=== PATIENT | female | born 1935 | race Caucasian/White ===

== ENCOUNTER → 2016-09-30 13:41 | Outpatient (CLI) | payer MEDICARE, OTHER ==
[2013-01-05 14:01] VITALS: BMI 29.3
== END | disposition home or self-care (01) ==
LOC: D.US 13:41
DX: R80.9 Proteinuria, unspecified (principal); N18.3 Chronic kidney disease, stage 3 (moderate); E21.1 Secondary hyperparathyroidism, not elsewhere classified; I10 Essential (primary) hypertension

== ENCOUNTER → 2016-12-17 13:45 | Outpatient (CLI) | payer MEDICARE, OTHER ==
[2013-01-05 14:01] VITALS: BMI 29.3
== END | disposition home or self-care (01) ==
LOC: D.MRI 13:45
DX: M75.81 Other shoulder lesions, right shoulder (principal)

== ENCOUNTER 2017-01-25 05:08 | Day surgery (SDC) | payer MEDICARE, OTHER ==
[2017-01-22 09:15] LABS: BASOPHILS 0.9 % (0-2); EOSINOPHILS 2.6 % (0-7); HEMATOCRIT 41.7 % (36.0-48.0); HEMOGLOBIN 13.4 g/dL (12-16); IMMATURE GRANULOCYTES 0.5 % (0-5); LYMPHOCYTES 23.3 % (15-50); MCHC 32.1 g/dL (31.0-37.0); MCV 93.5 fL (80.0-100.0); MEAN PLATELET VOLUME 9.2 fL (7.4-10.4); MONOCYTES 15.9 % (2-11); NEUTROPHILS 56.8 % (40-80); RBC 4.46 10x6/uL (4.00-5.40); RDW 13.4 % (11.5-14.5); WBC 8.8 10x3/uL (4.8-10.8)
[2017-01-22 09:16] LABS: PLATELET COUNT 257 10x3/uL (130-400)
[2017-01-22 09:25] LABS: ANION GAP 10.4 mmol/L (8-16); CALCIUM 9.1 mg/dL (8.5-10.1); CARBON DIOXIDE 31.5 mmol/L (21.0-32.0); CREATININE - SERUM 1.3 mg/dL (0.6-1.3); POTASSIUM - SERUM 3.9 mmol/L (3.5-5.1)
[~2017-01-25] VITALS: Ht 152.4 cm; Wt 68.0 kg
--- NOTE | ~2017-01-25 | OP ---
PATIENT NAME: RAPHAEL CABRAL MEDICAL RECORD: [id number] :37 LOCATION:[facility] ADMISSION DATE: SURGEON: KEVIN HAMMONDS, MADI RAHMAN DATE OF OPERATION: 01/25/2017 PREOPERATIVE DIAGNOSES: 1. Rotator cuff tear of the right shoulder. 2. Impingement syndrome of the right shoulder. 3. Acromioclavicular arthritis of the right shoulder. POSTOPERATIVE DIAGNOSES: 1. Rotator cuff tear of the right shoulder. 2. Impingement syndrome of the right shoulder. 3. Acromioclavicular arthritis of the right shoulder. PROCEDURES: 1. Arthroscopic rotator cuff repair of the right shoulder. 2. Arthroscopic distal clavicle excision of the right shoulder -- 1 cm through separate incisions. 3. Arthroscopic subacromial decompression, acromioplasty and bursectomy. SURGEON: Madi Garza MD ANESTHESIA: General. INTRAOPERATIVE COMPLICATIONS: None. SUMMARY OF PATHOLOGIC FINDINGS: The patient had a full thickness rotator cuff tear at the supraspinatus tendon with a type 3 acromion as well as severe acromioclavicular arthritis. OPERATIVE SUMMARY IN DETAIL: After obtaining the appropriate preoperative orthopedic surgery consents as well as anesthetic consultation, evaluation and clearance, the patient was brought to the operating room and placed in the operating table in supine position. After adequate general laryngeal mask airway was administered, the patient was placed n the left lateral decubitus position. All pressure points were well padded to include down leg peroneal pad as well as axillary roll. The patient was held firmly to the operating table using the vacuum pack suction system. Right upper extremity and shoulder were then prepped and draped in a routine sterile fashion. The arm was held in the Arthrex traction boom at 30 degrees of forward flexion, 30 degrees of abduction with 10 pounds of traction laterally. Arthroscopy was established in the glenohumeral joint from a posterior portal. Anterior portal was established in the anterior safe interval. Diagnostic arthroscopy revealed the above findings. A transarthroscopic rotator cuff tear portal was created for debridement of the rotator cuff as well as decortication of the supraspinatus tendinous footprint. The attention was then turned to the subacromial space. Following the subacromial space, an [place] tissue ablation system was utilized to denude the undersurface of the acromion of all soft tissue elements and released coracoacromial ligament. A bur was then used to perform acromioplasty at the level of acromioclavicular joint and through a separate arthroscopic anterior portal, distal clavicle was excised for 1 cm. Having completed this, attention was returned to the rotator cuff. An inverted #2 FiberTape was then placed in mattress style fashion. The rotator cuff was reapproximated with the FiberTape and then anchored laterally with a 5.5 SwiveLock from Arthrex. Having completed OPERATIVE REPORT [id number] RAPHAEL CABRAL this, arthroscopy portals were closed in routine interrupted fashion using 4-0 Prolene. Sterile dressings were applied. The patient was awakened and taken to the recovery room in stable condition. All final needle and instruments counts were correct. TRANSINT:[id number] Voice Confirmation ID: [id number] DOCUMENT ID: [id number] KEVIN HAMMONDS, MADI RAHMAN CC: [id number] DICTATION DATE: 01/25/171114 HOSPITAL FELLOW: 01/25/171955 [id number] [place] [address]
[~2017-01-25 05:08] MED LIST: CYMBALTA60 MG PO; NIFEDIPINE ER30 MG PO; PREVACID15 MG PO; PROPRANOLOL HCL20 MG PO; TROSPIUM CHLORI20 MG PO; ULTRAM50 MG PO; VIBERZI PO; VITAMIN D250000 UNIT PO; ZOCOR40 MG PO
[2017-01-25 08:38] VITALS: BP 166/86; Ht 152.4 cm; Wt 68.0 kg
[2017-01-25] MEDS ORDERED: HYDROCODONE-APA1 TAB PO (11:19)
== END 2017-01-25 14:30 | disposition home or self-care (01) ==
LOC: D.OPS 05:08 → D.PAN 08:30 → D.OPS 09:30 → D.PAN 10:15 → D.OPS 14:30
PROVIDERS: Anesthesiology
DX: M75.101 Unspecified rotator cuff tear or rupture of right shoulder, not specified as traumatic (principal); M75.41 Impingement syndrome of right shoulder; I12.9 Hypertensive chronic kidney disease with stage 1 through stage 4 chronic kidney disease, or unspecified chronic kidney disease; N18.9 Chronic kidney disease, unspecified; Z01.812 Encounter for preprocedural laboratory examination

== ENCOUNTER → 2017-09-15 12:46 | Outpatient (CLI) | payer MEDICARE, OTHER ==
[2017-01-25 08:38] VITALS: BMI 29.3
[~2017-09-15 12:46] MED LIST changes: +HYDROCODONE-APA1 TAB PO
== END | disposition home or self-care (01) ==
LOC: D.RAD 12:46
DX: M54.2 Cervicalgia (principal)

== ENCOUNTER → 2017-09-23 13:53 | Outpatient (CLI) | payer MEDICARE, OTHER ==
[2017-01-25 08:38] VITALS: BMI 29.3
== END | disposition home or self-care (01) ==
LOC: D.MRI 13:53
DX: M54.12 Radiculopathy, cervical region (principal)

== ENCOUNTER → 2018-11-09 10:31 | Outpatient (CLI) | payer MEDICARE, OTHER ==
[2017-01-25 08:38] VITALS: BMI 29.3
== END | disposition home or self-care (01) ==
LOC: D.MRI 10:31
PROVIDERS: ATTEND Pain Medicine Pain Medicine
DX: M54.2 Cervicalgia (principal); M54.12 Radiculopathy, cervical region

== ENCOUNTER → 2019-04-06 13:03 | Outpatient (CLI) | payer MEDICARE, OTHER ==
[2017-01-25 08:38] VITALS: BMI 29.3
== END | disposition home or self-care (01) ==
LOC: D.CT 13:00
PROVIDERS: ATTEND Family Medicine
DX: G45.9 Transient cerebral ischemic attack, unspecified (principal)

== ENCOUNTER 2019-04-21 09:13 | Inpatient (IN) | payer MEDICARE, OTHER ==
[~2019-04-21] VITALS: Ht 152.4 cm; Wt 61.2 kg
[2019-04-21] MEDS ORDERED: ZANAFLEX4 MG PO (09:25)
[2019-04-21] MEDS ORDERED: BAYER CHEWABLE81 MG PO (09:26)
[2019-04-21 10:20] LABS: BASOPHILS 0.5 % (0-2); EOSINOPHILS 0.3 % (0-7); HEMATOCRIT 34.9 % (36.0-48.0); HEMOGLOBIN 11.4 g/dL (12-16); IMMATURE GRANULOCYTES 0.4 % (0-5); LYMPHOCYTES 11.3 % (15-50); MCH 29.4 pg (26.0-34.0); MCHC 32.7 g/dL (31.0-37.0); MCV 89.9 fL (80.0-100.0); MEAN PLATELET VOLUME 8.7 fL (7.4-10.4); MONOCYTES 15.7 % (2-11); NEUTROPHILS 71.8 % (40-80); PLATELET COUNT 262 10x3/uL (130-400); RBC 3.88 10x6/uL (4.00-5.40); RDW 12.8 % (11.5-14.5); WBC 12.6 10x3/uL (4.8-10.8)
[2019-04-21 10:29] LABS: APTT 31.3 SECONDS (22.8-39.4); INR 1.12 (0.85-1.17); PROTIME 13.9 SECONDS (11.6-15.0)
[2019-04-21 10:35] LABS: ALBUMIN 2.5 g/dL (3.4-5.0); ALKALINE PHOSPHATASE 60 U/L (46-116); ALT (SGPT) 9 U/L (10-68); BILIRUBIN - TOTAL 0.32 mg/dL (0.2-1.3); CALC OSMOLALITY 282 mosm/kg (275-300); CALCIUM 9.5 mg/dL (8.5-10.1); CARBON DIOXIDE 33.2 mmol/L (21.0-32.0); CHLORIDE - SERUM 102 mmol/L (98-107); CREATININE - SERUM 1.3 mg/dL (0.6-1.3); D-DIMER-QUANTITATIVE 1.23 ug/mLFEU (0.20-0.54); GLUCOSE 132 mg/dL (74-106); POTASSIUM - SERUM 4.2 mmol/L (3.5-5.1); PROTEIN - SERUM 6.7 g/dL (6.4-8.2); SODIUM 138 mmol/L (136-145); UREA NITROGEN 27 mg/dL (7-18); eGFR NON AFRICAN AMERICAN 41 mL/min (90-120)
[2019-04-21 10:43] LABS: CKMB 0.4 U/L (0.0-3.6); CREATINE KINASE 15 UL (21-215); MAGNESIUM - SERUM 1.6 mg/dL (1.8-2.4)
[2019-04-21 10:44] LABS: TROPONIN-I < 0.017 ng/mL (0.000-0.060)
--- NOTE | 2019-04-21 11:00 | NUR ---
ASSUMED CARE OF PATIENT AT THIS TIME, PT RESTING QUIETLY IN BED AT THIS TIME. EYES CLOSED, RESPIRATIONS EVEN AND UNLABORED.
--- NOTE | 2019-04-21 11:27 | NUR ---
According to the suicide assessment the patient does not need 1:1 observation. She is not suicidal, she is not depressed. She does admit to a lot of pain.
[2019-04-21 13:44] LABS: PROTEIN - BODY FLUID 4.1 G/DL
[2019-04-21 13:49] LABS: ERYTHROCYTE SEDIMENTATION RATE 40 mm/hr (0-30)
[2019-04-21 15:14] LABS: MACROPHAGES BF 4 %; NEUT - BF 94 %
--- NOTE | 2019-04-21 15:19 | NUR ---
PLACED PATIENT ON BEDPAN AT THIS TIME.
--- NOTE | 2019-04-21 16:56 | NUR ---
RECEIVED PT FROM ER VIA STRETCHER ACCOMPANIED BY ER STAFF. IV TO RIGHT AC, NS INFUSING @ 100ML/HR. SITE PATENT WITHOUT REDNESS OR SWELLING. C/O PAIN AND DISCOMFORT TO RIGHT KNEE. NO S/S OF ACUTE DISTRESS NOTED. VITALS STABLE. SPEECH APPROPRIATE. PT DENIES ANY NEEDS. CALL LIGHT IN REACH. WILL CONTINUE TO MONITOR.
[2019-04-21 17:03] VITALS: BP 122/64; BMI 26.4
--- NOTE | 2019-04-21 17:45 | MORECARE ---
CASE MANAGEMENT DISCHARGE SUMMARY PATIENT: RAPHAEL CABRAL UNIT: [id number] ADM DATE: 04/21/19 AGE: 83 : 36 SEX: F ROOM/BED: D.2230 AUTHOR: LIZY SHERMAN PHYSICIAN: REFERRING PHYSICIAN: DOE HILL MD DATE OF SERVICE: 04/21/19 Discharge Plan Patient Name: RAPHAEL CABRAL Facility: [facility]:[place] : 1935 Planned Disposition: Home Anticipated Discharge Date: 04/24/19 Discharge Date: Expected LOS: 3 Initial Reviewer: [email or web address] Initial Review Date: 04/21/2019 Generated: 04/21/19 6:45 pm Patient Name: RAPHAEL CABRAL Page 12165 at 1740 All edits/amendments must be made on the electronic document DICTATION DATE: 04/21/191744 HOSTESS HOST: HARESH 04/21/191744 RPT#: [id number] DC DATE: STATUS: ADM IN [facility] [address] [place] [address] END OF REPORT
--- NOTE | 2019-04-21 17:53 | MORECARE ---
CASE MANAGEMENT DISCHARGE SUMMARY PATIENT: RAPHAEL CABRAL UNIT: [id number] ADM DATE: 04/21/19 AGE: 83 : 36 SEX: F ROOM/BED: D.2230 AUTHOR: WHIT,DOC PHYSICIAN: REFERRING PHYSICIAN: DOE HILL MD DATE OF SERVICE: 04/21/19 Discharge Plan Patient Name: RAPHAEL CABRAL Facility: [facility]:[place] : 1935 Planned Disposition: Home Anticipated Discharge Date: 04/24/19 Discharge Date: Expected LOS: 3 Initial Reviewer: [email or web address] Initial Review Date: 04/21/2019 Generated: 04/21/19 6:53 pm DCP- Discharge Planning Updated by [email or web address]: Monet Barba on 04/21/19 4:[address] Patient Name: RAPHAEL CABRAL Admission Status: ER Accout number: [id number] Admission Date: 04-21-2019 : 1935 Admission Diagnosis: Attending: DOE HILL Current LOS: 1 Anticipated DC Date: 04-24-2019 Planned Disposition: Home Primary Insurance: MEDICARE A & B Discharge Planning Comments: DC PLAN: Will discuss HH/Rehab options with dtr / son before making final decision. ANTICIPATED DC NEEDS: [place]. CM met with patient to complete initial dc planning assessment. CM educated patient on the CM role and verbal consent given by patient to complete assessment. CM verified patient's address, phone number, and emergency contact phone numbers. Patient lives at home alone, her son lives in apartment below her but he works out of town a lot. At discharge patient hopes to return home and feels this is a safe discharge if she is able to get around on her knee. CM discussed availability of home health, rehab services, and medical equipment. 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 RAOUL signed by patient for [employer]. Patient stated once she see's how she is getting around on her knee she will discuss home health and rehab options with her kids to make final dc disposition. Patient reports her son or daughter will transport her home at time of discharge if she is able to dc home. CM will continue to follow and will assist as needed with dc plans/needs. Manager Internship: Monet Barba RN, [facility] DCPIA - Discharge Planning Initial Assessment Updated by [email or web address]: Monet Barba on 04/21/19 5:46 pm * Is the patient Alert and Oriented? Yes * How many steps to enter\exit or inside your home? RAMP * PCP DR. OBRIEN * Pharmacy [facility] [place] * Preadmission Environment Home Alone * ADLs Independent * Equipment Cane Rolling Walker * List name and contact numbers for known caregivers / representatives who currently or will assist patient after discharge: Umesh Cabral - daughter - [phone] * Verbal permission to speak to the caregivers and representatives has been obtained from the patient. Yes * Community resources currently utilized None * Additional services required to return to the preadmission environment? Yes * Can the patient safely return to the preadmission environment? Yes * Has this patient been hospitalized within the prior 30 days at any hospital? No Last DP export: 04/21/19 4:46 p Patient Name: RAPHAEL CABRAL Page 55891 at 1753 All edits/amendments must be made on the electronic document DICTATION DATE: 04/21/191751 ARCHITECTURAL PROJECT MANAGER: HARESH 04/21/191751 RPT#: [id number] DC DATE: STATUS: ADM IN [facility] [address] [place] [address] END OF REPORT
--- NOTE | 2019-04-21 18:01 | MORECARE ---
CASE MANAGEMENT DISCHARGE SUMMARY PATIENT: RAPHAEL CABRAL UNIT: [id number] ADM DATE: 04/21/19 AGE: 83 : 36 SEX: F ROOM/BED: D.2230 AUTHOR: WHIT,DOC PHYSICIAN: REFERRING PHYSICIAN: DOE HILL MD DATE OF SERVICE: 04/21/19 Discharge Plan Patient Name: RAPHAEL CABRAL Facility: [facility]:[place] : 1935 Planned Disposition: Home Anticipated Discharge Date: 04/24/19 Discharge Date: Expected LOS: 3 Initial Reviewer: [email or web address] Initial Review Date: 04/21/2019 Generated: 04/21/19 7:01 pm DCP- Discharge Planning Updated by [email or web address]: Monet Barba on 04/21/19 4:[address] Patient Name: RAPHAEL CABRAL Admission Status: ER Accout number: [id number] Admission Date: 04-21-2019 : 1935 Admission Diagnosis: Attending: DOE HILL Current LOS: 1 Anticipated DC Date: 04-24-2019 Planned Disposition: Home Primary Insurance: MEDICARE A & B Discharge Planning Comments: DC PLAN: Will discuss HH/Rehab options with dtr / son before making final decision. ANTICIPATED DC NEEDS: [place]. CM met with patient to complete initial dc planning assessment. CM educated patient on the CM role and verbal consent given by patient to complete assessment. CM verified patient's address, phone number, and emergency contact phone numbers. Patient lives at home alone, her son lives in apartment below her but he works out of town a lot. At discharge patient hopes to return home and feels this is a safe discharge if she is able to get around on her knee. CM discussed availability of home health, rehab services, and medical equipment. [place] RAOUL signed by patient for [employer]. Patient stated once she see's how she is getting around on her knee she will discuss home health and rehab options with her kids to make final dc disposition. Patient reports her son or daughter will transport her home at time of discharge if she is able to dc home. CM will continue to follow and will assist as needed with dc plans/needs. Advertising Sales Manager: Monet Barba RN, [facility] DCPIA - Discharge Planning Initial Assessment Updated by [email or web address]: Monet Barba on 04/21/19 5:46 pm * Is the patient Alert and Oriented? Yes * How many steps to enter\exit or inside your home? RAMP * PCP DR. OBRIEN * Pharmacy [facility] [place] * Preadmission Environment Home Alone * ADLs Independent * Equipment Cane Rolling Walker * List name and contact numbers for known caregivers / representatives who currently or will assist patient after discharge: Umesh Cabral - daughter - [phone] * Verbal permission to speak to the caregivers and representatives has been obtained from the patient. Yes * Community resources currently utilized None * Additional services required to return to the preadmission environment? Yes * Can the patient safely return to the preadmission environment? Yes * Has this patient been hospitalized within the prior 30 days at any hospital? No Last DP export: 04/21/19 4:53 p Patient Name: RAPHAEL CABRAL Page 95369 at 1801 All edits/amendments must be made on the electronic document DICTATION DATE: 04/21/191800 VENTILATION MECHANIC: HARESH 04/21/191800 RPT#: [id number] DC DATE: STATUS: ADM IN [facility] [address] [place] [address] END OF REPORT
[2019-04-21 20:00] VITALS: BP 119/56
--- NOTE | 2019-04-21 20:00 | NUR ---
RESTING IN BED RESP UNLABORED, EDEMA NOTED TO RIGHT KNEE, DENIES PAIN, SEE SHIFT ASSESSMENT, CALL LIGHT IN REACH
[2019-04-21 21:24] LABS: APPEARANCE CLOUDY (CLEAR); BILIRUBIN NEGATIVE (NEGATIVE); COLOR YELLOW (YELLOW); GLUCOSE NEGATIVE (NEGATIVE); KETONE NEGATIVE (NEGATIVE); NITRITE NEGATIVE (NEGATIVE); PROTEIN TRACE mg/dL (NEGATIVE); UROBILINOGEN NORMAL (NORMAL)
[2019-04-21 21:25] LABS: BACTERIA MANY /hpf (NONE SEEN); RED CELLS - URINE 0-5 /hpf (0-5); WHITE CELLS - URINE 25-50 /hpf (0-5)
[2019-04-22] VITALS: BP 149/58
[2019-04-22 04:00] VITALS: BP 149/75
[2019-04-22 06:48] LABS: EOSINOPHILS 0.7 % (0-7); HEMATOCRIT 35.8 % (36.0-48.0); HEMOGLOBIN 11.7 g/dL (12-16); IMMATURE GRANULOCYTES 0.5 % (0-5); LYMPHOCYTES 16.7 % (15-50); MCH 29.5 pg (26.0-34.0); MCHC 32.7 g/dL (31.0-37.0); MCV 90.4 fL (80.0-100.0); MEAN PLATELET VOLUME 9.7 fL (7.4-10.4); MONOCYTES 18.9 % (2-11); NEUTROPHILS 62.2 % (40-80); PLATELET COUNT 295 10x3/uL (130-400); RBC 3.96 10x6/uL (4.00-5.40); RDW 12.8 % (11.5-14.5); WBC 10.2 10x3/uL (4.8-10.8)
[2019-04-22 07:01] LABS: ANION GAP 14.5 mmol/L (8-16); CALCIUM 9.1 mg/dL (8.5-10.1); CARBON DIOXIDE 26.2 mmol/L (21.0-32.0); CREATININE - SERUM 1.1 mg/dL (0.6-1.3); POTASSIUM - SERUM 3.7 mmol/L (3.5-5.1)
--- NOTE | 2019-04-22 07:15 | NUR ---
ALERT AND ORIENTED, SPEECH SLOW. NO C/O PAIN. NO S/S OF ACUTE DISTRESS NOTED. VERY [place]. IV TO RIGHT AC, NS INFUSING @ 100ML/HR. SITE PATENT WITHOUT REDNESS OR SWELLING. PT DENIES ANY NEEDS. CALL LIGHT IN REACH. WILL CONTINUE TO MONITOR.
--- NOTE | 2019-04-22 07:40 | NUR ---
PT TAKEN TO SURGERY VIA BED ACCOMPANIED BY SURGICAL STAFF.
[2019-04-22 07:49] LABS: ERYTHROCYTE SEDIMENTATION RATE 115 mm/hr (0-30)
--- NOTE | 2019-04-22 09:24 | NUR ---
CONSULTED ANESTHESIA ABOUT BP. HE VOCALIZED HER PRE OPERATIVE BP WAS 180/82 SO SHE IS WITHIN HER PREVIOUS BASELINE TO GO BACK TO [facility] FLOOR
[2019-04-22 09:35] VITALS: BP 167/76
[2019-04-22 09:36] VITALS: BP 147/86
--- NOTE | 2019-04-22 09:36 | NUR ---
RECEIVED PT FROM RECOVERY. VITALS STABLE. PT SLEEPING, AROUSES TO VOICE. NO C/O PAIN. ON 2L O2, NC. O2 SAT DROPS WHEN OFF O2, KEEPING ON O2 FOR NOW.
--- NOTE | 2019-04-22 09:36 | NUR ---
DRESSING TO RIGHT KNEE C/D/I.
[2019-04-22 12:04] VITALS: Ht 152.4 cm; Wt 61.2 kg
[2019-04-22 13:40] LABS: % SATURATION 10 % (15-55); IRON 21 ug/dl (35-150); TOTAL IRON BIND CAPACITY 203 ug/dl (260-445); UNSAT IRON BIND CAPACITY 182 ug/dl (150-375)
--- NOTE | 2019-04-22 15:46 | NUR ---
I have reviewed this patient and I concur with the Shift Assessment completed by the Licensed Practical Nurse today this shift.
[2019-04-22 17:16] VITALS: BP 168/80
--- NOTE | 2019-04-22 18:24 | NUR ---
ALERT AND ORIENTED, RESTING IN BED. NO C/O PAIN. NO S/S OF ACUTE DISTRESS NOTED. FALL PRECAUTIONS IN PLACE. PT DENIES ANY NEEDS. CALL LIGHT IN REACH. WILL CONTINUE TO MONITOR.
--- NOTE | 2019-04-22 18:38 | NUR ---
I have reviewed this patient and I concur with the Shift Assessment completed by the Licensed Practical Nurse today this shift.
[2019-04-22 20:00] VITALS: BP 181/81
--- NOTE | 2019-04-22 20:00 | NUR ---
ALERT RESTING IN BED, EZEQUIEL WRAP DRESSING INTACT TO RIGHT KNEE, C/O PAIN WITH MOVEMENT, SEE SHIFT ASSESSMENT, CALL LIGHT IN REACH
[2019-04-23] VITALS: BP 172/77
[2019-04-23 04:00] VITALS: BP 185/84
[2019-04-23 04:53] LABS: BASOPHILS 0.3 % (0-2); EOSINOPHILS 0.3 % (0-7); HEMATOCRIT 30.2 % (36.0-48.0); HEMOGLOBIN 9.9 g/dL (12-16); IMMATURE GRANULOCYTES 0.6 % (0-5); LYMPHOCYTES 10.6 % (15-50); MCH 29.6 pg (26.0-34.0); MCHC 32.8 g/dL (31.0-37.0); MCV 90.1 fL (80.0-100.0); MEAN PLATELET VOLUME 8.8 fL (7.4-10.4); MONOCYTES 15.8 % (2-11); NEUTROPHILS 72.4 % (40-80); RBC 3.35 10x6/uL (4.00-5.40); RDW 12.8 % (11.5-14.5)
[2019-04-23 04:59] LABS: PLATELET COUNT 230 10x3/uL (130-400); WBC 13.6 10x3/uL (4.8-10.8)
[2019-04-23 05:18] LABS: ANION GAP 13.7 mmol/L (8-16); CARBON DIOXIDE 23.7 mmol/L (21.0-32.0); CREATININE - SERUM 0.9 mg/dL (0.6-1.3); POTASSIUM - SERUM 3.4 mmol/L (3.5-5.1); VANCOMYCIN - TROUGH 15.7 ug/mL (10.0-20.0)
--- NOTE | 2019-04-23 07:35 | NUR ---
ALERT AND ORIENTED, RESTING IN BED. NO C/O PAIN. NO S/S OF ACUTE DISTRESS NOTED. VERY [place]. EZEQUIEL WRAP TO RIGHT KNEE, C/D/I. ON 2L O2, NC. IV TO RIGHT AC, NS INFUSING @ 100ML/HR. SITE PATENT WITHOUT REDNESS OR SWELLING. PT DENIES ANY NEEDS. CALL LIGHT IN REACH. WILL CONTINUE TO MONITOR.
[2019-04-23 08:07] VITALS: BP 167/80
--- NOTE | 2019-04-23 09:24 | NUR ---
REHAB PRESCREENING Rehab referral received and chart reviewed. This patient has PT and OT evaluations ordered but not documented as of yet. Rehab will continue to follow this patient for admission criteria. Thank you for this referral! Jyoti Gillette, CARBURETOR REBUILDER Rehab PD
[2019-04-23 14:01] VITALS: BP 178/56
[2019-04-23 14:43] LABS: ERYTHROCYTE SEDIMENTATION RATE 60 mm/hr (0-30)
--- NOTE | 2019-04-23 16:44 | NUR ---
I have reviewed this patient and I concur with the Shift Assessment completed by the Licensed Practical Nurse today this shift.
[2019-04-23 17:28] VITALS: BP 196/89
--- NOTE | 2019-04-23 19:35 | NUR ---
PT LYING IN BED RESTING WITHOUT DISTRESS, ALERT AND ORIENTED. DENIES PAIN. PILOT POINT. IV RIGHT FA INFUSING NS @ 100. ASSISTED ON AND OFF BEDPAN. REQUESTED AND GAVE WATER. DRESSING TO RIGHT KNEE CDI. DENIES OTHER NEEDS AT THIS TIME. CL IN REACH, WILL CTM
[2019-04-23 20:00] VITALS: BP 157/73
[2019-04-24] VITALS: BP 189/84
--- NOTE | 2019-04-24 00:30 | NUR ---
PT STATES PAIN IN RIGHT KNEE 03/15. GAVE NORCO ORDERED. PT ALSO WITH TEMP 101.7, NORCO GIVEN. ROOM IS WARM AND PT WITH MULTIPLE BLANKETS ON. PULLED OFF BLANKETS AND COOLED ROOM DOWN. WILL CTM
[2019-04-24 04:00] VITALS: BP 144/80
[2019-04-24 06:37] LABS: BASOPHILS 0.5 % (0-2); EOSINOPHILS 2.2 % (0-7); HEMOGLOBIN 9.8 g/dL (12-16); IMMATURE GRANULOCYTES 1.4 % (0-5); LYMPHOCYTES 12.8 % (15-50); MCH 28.8 pg (26.0-34.0); MCHC 31.6 g/dL (31.0-37.0); MCV 91.2 fL (80.0-100.0); MEAN PLATELET VOLUME 9.4 fL (7.4-10.4); MONOCYTES 14.2 % (2-11); NEUTROPHILS 68.9 % (40-80); RDW 13.1 % (11.5-14.5); WBC 11.5 10x3/uL (4.8-10.8)
[2019-04-24 06:40] LABS: PLATELET COUNT 321 10x3/uL (130-400)
[2019-04-24 07:00] LABS: ANION GAP 10.9 mmol/L (8-16); CALCIUM 8.4 mg/dL (8.5-10.1); CARBON DIOXIDE 28.5 mmol/L (21.0-32.0); CREATININE - SERUM 0.9 mg/dL (0.6-1.3); POTASSIUM - SERUM 3.4 mmol/L (3.5-5.1)
--- NOTE | 2019-04-24 07:21 | NUR ---
PT IS RESTING IN BED WITH EYES CLOSED. RESPIRATIONS ARE EVEN AND UNLABORED. PT IS EASILY AROUSED WITH VERBAL STIMULATION. UPON AROUSAL PT IS AAO X 4. PT WITH NOTICABLE BLUE DISCOLORATION TO THE LIPS. PT OXYGENATING WELL. SEE VITALS FLOWSHEET. O2 VIA NC @ 2L. PT QUESTIONED ABOOUT LIP DISCOLORATION AND PT REPORTS THAT SHE HAD MAKEUP TATTOOED EARLIER IN LIFE AND "IT IS NOT THE COLOR THAT I WANTED". PT STATES THAT SHE ALSO HAS TATTOO MAKEUP EYELINER AND FOR HER EYEBROWS. PT REPORTS SLIGHT PAIN TO NECK AND BACK AREA. WILL ADDRESS. SEE EMAR. PT DENIES PRESENCE OF N/V. BED IS IN THE LOWEST POSITION. CALL LIGHT AND BEDSIDE TABLE ARE WITHIN REACH. SIDE RAILS X 2. WILL CONT TO MONITOR. PT DENIES FURTHER NEEDS
[2019-04-24 08:34] VITALS: BP 185/81
[2019-04-24 13:48] VITALS: BP 148/73
--- NOTE | 2019-04-24 14:30 | EC ---
PATIENT:RAPHAEL CABRAL DATE OF SERVICE: 04/21/19 SEX: F MEDICAL RECORD: [id number] DATE OF : [birth year] LOCATION:[facility] AGE OF PATIENT: 83 ADMISSION DATE: 04/21/19 REFERRING PHYSICIAN: INTERPRETING PHYSICIAN: ROCKY ALMANZAR MD ECHOCARDIOGRAM REPORT ECHO CHARGES 4 ECHO COMPLETE Date: 04/22/19 CLINICAL DIAGNOSIS: SEPSIS ECHOCARDIOGRAPHIC MEASUREMENTS (adult normal given) AC root (d.<3.7cm) 2.9 cm LV Septum d (<1.2 cm> 0.7 cm Valve Excursion 1.6 cm LV Septum (systole) 1.2 cm Left Atria (s.<4.0cm> 3.1 cm LVPW d(<1.2cm) 1.0 cm RV (d.<2.3cm) 3.2 cm LVPW (sytole) 1.4 cm LV diastole(<5.6CM) 4.7 cm MV E-F(>70mm/sec) cm LV systole 2.7 cm LVOT Diameter 1.7 cm MV exc.(>10mm) cm Est.ejection fraction (50-75%) % DOPPLER: LVIT cm/sec A 101 cm/sec E 57 cm/sec LA cm/sec RVSP 44.3 mmHg LVOT 121 cm/sec AOP1/2T m/s Asc. Ao 163 cm/sec RVOT 77 cm/sec RA cm/sec PA 88 cm/sec AV Gradient Peak 10.7 mmHg AV Mean 7.2 mmHg AV Area 1.6 cm MV Gradient Peak 6.6 mmHg MV Mean 3.1 mmHg MV Area cm COMMENTS: Gis Scientist: Burke JULIAN Writer Technical Publications: 3 Dr. Roth TAPE# PACS Pericardial Effusion N DATE OF SERVICE: Adequate 2-D, color-flow and spectral Doppler, and M-mode. No LVH. LV internal dimensions are normal. Wall motion is normal. EF is greater than or equal to 55%. Aortic valve sclerosis without stenosis by Doppler interrogation. Left atrium is normal. Mitral valve shows no prolapse. Trace MR. Right-sided chambers are grossly normal. Trace TR. TRANSINT:[id number] Voice Confirmation ID: [id number] DOCUMENT ID: [id number] ECHOCARDIOGRAM REPORT [id number] RAPHAEL CABRAL ROCKY ALMANZAR MD at 1430 CC: [id number] DICTATION DATE: 04/23/19 1049 SUPPLY CHAIN DIRECTOR: 04/23/19 1427 ADM IN [place] [id number] [place] [id number]
[2019-04-24 17:18] VITALS: BP 136/67
--- NOTE | 2019-04-24 19:40 | NUR ---
LYING IN BED TALKING TO VISITOR. ALERT AND ORIENTED BUT CONFUSED. [place]. RESP NONLABORED. O2 @ 2L/NC. DRSG NOTED TO RT KNEE WITH EZEQUIEL WRAP IN USE. PEDAL PULSES GOOD. NO EDEMA NOTED. RATES PAIN 7. USES BEDPAN. NS @ 75 ML/HR INFUSING IN RT FOREARM WITHOUT DIFF. BED ALARM ON FOR PT SAFETY. SR ELEVATED X2. CL IN REACH.
--- NOTE | 2019-04-24 20:40 | NUR ---
MEDICATED WITH NORCO FOR C/O PAIN. CL IN REACH.
[2019-04-24 21:15] VITALS: BP 135/58
[2019-04-25 01:53] VITALS: BP 144/63
--- NOTE | 2019-04-25 02:08 | NUR ---
IV LEAKING AT THIS TIME. IV CATH REMOVED FROM RT FOREARM. PT GERSON WELL. STAFF HAS ATTEMPTED X3 TO RESTART IV WITHOUT SUCCESS.
--- NOTE | 2019-04-25 02:33 | NUR ---
IV RESTARTED IN RT WRIST WITH 22G. PT GERSON WELL.
[2019-04-25 05:36] VITALS: BP 140/59
[2019-04-25 06:58] LABS: BASOPHILS 0.6 % (0-2); EOSINOPHILS 4.8 % (0-7); HEMATOCRIT 28.7 % (36.0-48.0); HEMOGLOBIN 8.9 g/dL (12-16); IMMATURE GRANULOCYTES 3.1 % (0-5); MCH 28.4 pg (26.0-34.0); MCV 91.7 fL (80.0-100.0); MEAN PLATELET VOLUME 9.3 fL (7.4-10.4); MONOCYTES 14.3 % (2-11); NEUTROPHILS 64.2 % (40-80); PLATELET COUNT 286 10x3/uL (130-400); RBC 3.13 10x6/uL (4.00-5.40); RDW 13.2 % (11.5-14.5)
[2019-04-25 07:02] LABS: ANION GAP 9.7 mmol/L (8-16); CALCIUM 8.5 mg/dL (8.5-10.1); CARBON DIOXIDE 28.7 mmol/L (21.0-32.0); POTASSIUM - SERUM 3.4 mmol/L (3.5-5.1)
[2019-04-25 08:59] VITALS: BP 133/67
--- NOTE | 2019-04-25 09:04 | NUR ---
PT ALERT X 4. BREATH SOUNDS CLEAR BILAT, 2L O2 PER NC. IV TO RIGHT HAND, PATENT, DRESSING CDI. PT REPORTING NO PAIN AT THIS TIME. EZEQUIEL WRAP TO RIGHT KNEE, CDI. BED LOW, CALL LIGHT IN REACH. NO OTHER NEEDS AT THIS TIME.
[2019-04-25 09:46] LABS: ERYTHROCYTE SEDIMENTATION RATE 124 mm/hr (0-30)
[2019-04-25 14:23] VITALS: BP 120/69
--- NOTE | 2019-04-25 14:37 | NUR ---
OT NOTE: BED MOB WITH MIN ASSIST; EOB SITTING WITH GOOD BALANCE; SIMPLE GROOMING TASKS WITH SET UP; FUNCTIONAL TRANSFERS WITH WALKER AND MIN/MOD ASSIST. LAKESHIA BRAGG, OTR/L
--- NOTE | 2019-04-25 15:13 | NUR ---
OT NOTE: PT COMPLETED R SIDE ROLLING WITH MIN A. PT COMPLETED SCOOTING IN BED WITH SIDE RAILS. PT COMPLETED FACE WASH WITH SET UP. PT IS PAUMA. PT STATED HER PAIN LEVEL HAS DECREASED . THANK YOU, SARAI SCHREIBER
--- NOTE | 2019-04-25 16:09 | MORECARE ---
CASE MANAGEMENT DISCHARGE SUMMARY PATIENT: RAPHAEL CABRAL UNIT: [id number] ADM DATE: 04/21/19 AGE: 83 : 36 SEX: F ROOM/BED: D.2230 AUTHOR: LIZY SHERMAN PHYSICIAN: REFERRING PHYSICIAN: DOE HILL MD DATE OF SERVICE: 04/25/19 Discharge Plan Patient Name: RAPHAEL CABRAL Facility: [facility]:[place] : 1935 Planned Disposition: Home Anticipated Discharge Date: 04/24/19 Discharge Date: Expected LOS: 3 Initial Reviewer: [email or web address] Initial Review Date: 04/21/2019 Generated: 04/25/19 5:08 pm Comments DCP- Discharge Planning Updated by [email or web address]: Pratima Brambila on 04/25/19 3:[address] Patient Name: RAPHAEL CABRAL Admission Status: ER Accout number: [id number] Admission Date: 04-21-2019 : 1935 Admission Diagnosis: Attending: DOE HILL Current LOS: 4 Anticipated DC Date: 04-24-2019 Planned Disposition: Home Primary Insurance: MEDICARE A & B Discharge Planning Comments: CM MET WITH PATIENT AND SHE IS INTERESTED IN INPATIENT REHAB WHEN DISCHARGED. CM TO FOLLOW AND ASSIST. Associate Entertainment Editor: Pratima Brambila DCP- Discharge Planning Updated by [email or web address]: Monet Barba on 04/21/19 4:[address] Patient Name: RAPHAEL CABRAL Admission Status: ER Accout number: [id number] Admission Date: 04-21-2019 : 1935 Admission Diagnosis: Attending: DOE HILL Current LOS: 1 Anticipated DC Date: 04-24-2019 Planned Disposition: Home Primary Insurance: MEDICARE A & B Discharge Planning Comments: DC PLAN: Will discuss HH/Rehab options with dtr / son before making final decision. ANTICIPATED DC NEEDS: [place]. CM met with patient to complete initial dc planning assessment. CM educated patient on the CM role and verbal consent given by patient to complete assessment. CM verified patient's address, phone number, and emergency contact phone numbers. Patient lives at home alone, her son lives in apartment below her but he works out of town a lot. At discharge patient hopes to return home and feels this is a safe discharge if she is able to get around on her knee. CM discussed availability of home health, rehab services, and medical equipment. 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 RAOUL signed by patient for [facility]. Patient stated once she see's how she is getting around on her knee she will discuss home health and rehab options with her kids to make final dc disposition. Patient reports her son or daughter will transport her home at time of discharge if she is able to dc home. CM will continue to follow and will assist as needed with dc plans/needs. Associate Entertainment Editor: Monet Barba RN, [facility] DCPIA - Discharge Planning Initial Assessment Updated by [email or web address]: Monet Barba on 04/21/19 5:46 pm * Is the patient Alert and Oriented? Yes * How many steps to enter\exit or inside your home? RAMP * PCP DR. OBRIEN * Pharmacy [facility] * Preadmission Environment Home Alone * ADLs Independent * Equipment Cane Rolling Walker * List name and contact numbers for known caregivers / representatives who currently or will assist patient after discharge: Umesh Cabral - daughter - [phone] * Verbal permission to speak to the caregivers and representatives has been obtained from the patient. Yes * Community resources currently utilized None * Additional services required to return to the preadmission environment? Yes * Can the patient safely return to the preadmission environment? Yes * Has this patient been hospitalized within the prior 30 days at any hospital? No Last DP export: 04/21/19 5:01 p Patient Name: RAPHAEL CABRAL Page 12484 at 1609 All edits/amendments must be made on the electronic document DICTATION DATE: 04/25/191607 REAL PROPERTY EVALUATOR: HARESH 04/25/191607 RPT#: [id number] DC DATE: STATUS: ADM IN [facility] [address] [place] [address] END OF REPORT
--- NOTE | 2019-04-25 16:46 | NUR ---
Rehab Note- Visited with the patient. She is interested in [facility] Acute Inpatient REhab but also wants to talk with her kids about it. Left pamplet & contact information for our unit. Will continue to follow at this time & will accept when medically stable & if in agreeance with coming to [facility] Acute Inpatient Rehab. Thank you for this referral! Lisa Buitrago RN Clinical Liaison, [facility] Rehab
[2019-04-25 17:51] VITALS: BP 137/61
--- NOTE | 2019-04-25 20:00 | NUR ---
ALERT RESTING IN BED, REPORTS HAVING SOME PAIN TO RIGHT KNEE, REQUESTING PAIN MED, GIVEN,BANDAIDS INTACT TO RIGHT KNEE, NO DRAINAGE NOTED SEE SHIFT ASSESMENT, CALL LIGHT IN REACH
[2019-04-25 21:16] VITALS: BP 144/63
[2019-04-26 00:56] VITALS: BP 139/59
[2019-04-26 05:54] VITALS: BP 120/64
[2019-04-26 07:40] LABS: BASOPHILS 0.6 % (0-2); HEMATOCRIT 28.1 % (36.0-48.0); HEMOGLOBIN 9.1 g/dL (12-16); IMMATURE GRANULOCYTES 2.3 % (0-5); LYMPHOCYTES 12.2 % (15-50); MCH 29.3 pg (26.0-34.0); MCHC 32.4 g/dL (31.0-37.0); MCV 90.4 fL (80.0-100.0); MEAN PLATELET VOLUME 9.1 fL (7.4-10.4); MONOCYTES 13.7 % (2-11); NEUTROPHILS 66.2 % (40-80); PLATELET COUNT 287 10x3/uL (130-400); RBC 3.11 10x6/uL (4.00-5.40); RDW 13.4 % (11.5-14.5); WBC 10.8 10x3/uL (4.8-10.8)
[2019-04-26 08:04] LABS: ANION GAP 10.1 mmol/L (8-16); C-REACTIVE PROTEIN 12.6 mg/dL (0.0-0.9); CALCIUM 8.7 mg/dL (8.5-10.1); CARBON DIOXIDE 28.3 mmol/L (21.0-32.0); CREATININE - SERUM 0.8 mg/dL (0.6-1.3); POTASSIUM - SERUM 3.4 mmol/L (3.5-5.1)
[2019-04-26 09:13] LABS: ERYTHROCYTE SEDIMENTATION RATE 135 mm/hr (0-30)
[2019-04-26 09:45] VITALS: BP 153/73
[2019-04-26] MEDS ORDERED: LOVENOX40 MG/0.4 SC (11:40)
[2019-04-26] MEDS ORDERED: CYCLOBENZAPRINE10 MG PO (11:40)
[2019-04-26] MEDS ORDERED: FLORAJEN3 CAPS460 MG PO (11:41)
[2019-04-26] MEDS ORDERED: HYDROCODON-ACE1 EAC7 PO (11:41)
[2019-04-26] MEDS ORDERED: MIRALAX17 GM PO (11:41)
[2019-04-26] MEDS ORDERED: CALMOSEPTINE OI71 GM TOPICAL (11:41)
[2019-04-26] MEDS ORDERED: ZOFRAN ODT4 MG/UDTAB PO (11:42)
[2019-04-26] MEDS ORDERED: PROTONIX40 MG PO (11:42)
[2019-04-26] MEDS ORDERED: FERRLECIT62.5 MG/2 IVPB (11:43)
--- NOTE | 2019-04-26 11:50 | NUR ---
Rehab Note- Spoke with the patient's son Catalina, discussed inpatient acute rehab. He is agreeance with [facility] Acute Inpatient Rehab. Will plan to admit when discharged from the acute hospital. Continue to follow at this time. Lisa Buitrago RN CLinical Liaison, [facility] Rehab
--- NOTE | 2019-04-26 11:58 | MORECARE ---
CASE MANAGEMENT DISCHARGE SUMMARY PATIENT: RAPHAEL CABRAL UNIT: [id number] ADM DATE: 04/21/19 AGE: 83 : 36 SEX: F ROOM/BED: D.2230 AUTHOR: LIZY SHERMAN PHYSICIAN: REFERRING PHYSICIAN: DOE HILL MD DATE OF SERVICE: 04/26/19 Discharge Plan Patient Name: RAPHAEL CABRAL Facility: [facility]:[place] : 1935 Planned Disposition: Inpatient Rehab Anticipated Discharge Date: 04/24/19 Discharge Date: Expected LOS: 3 Initial Reviewer: [email or web address] Initial Review Date: 04/21/2019 Generated: 04/26/19 12:57 pm Comments DCP- Discharge Planning Updated by [email or web address]: Pratima Brambila on 04/25/19 3:[address] Patient Name: RAPHAEL CABRAL Admission Status: ER Accout number: [id number] Admission Date: 04-21-2019 : 1935 Admission Diagnosis: Attending: DOE HILL Current LOS: 4 Anticipated DC Date: 04-24-2019 Planned Disposition: Home Primary Insurance: MEDICARE A & B Discharge Planning Comments: CM MET WITH PATIENT AND SHE IS INTERESTED IN INPATIENT REHAB WHEN DISCHARGED. CM TO FOLLOW AND ASSIST. French Professor: Pratima Brambila DCP- Discharge Planning Updated by [email or web address]: Monet Barba on 04/21/19 4:[address] Patient Name: RAPHAEL CABRAL Admission Status: ER Accout number: [id number] Admission Date: 04-21-2019 : 1935 Admission Diagnosis: Attending: DOE HILL Current LOS: 1 Anticipated DC Date: 04-24-2019 Planned Disposition: Home Primary Insurance: MEDICARE A & B Discharge Planning Comments: DC PLAN: Will discuss HH/Rehab options with dtr / son before making final decision. ANTICIPATED DC NEEDS: Wants a BSC at al. CM met with patient to complete initial dc planning assessment. CM educated patient on the CM role and verbal consent given by patient to complete assessment. CM verified patient's address, phone number, and emergency contact phone numbers. Patient lives at home alone, her son lives in apartment below her but he works out of town a lot. At discharge patient hopes to return home and feels this is a safe discharge if she is able to get around on her knee. CM discussed availability of home health, rehab services, and medical equipment. She is requesting a BSC at dc. RAOUL signed by patient for [facility]. Patient stated once she see's how she is getting around on her knee she will discuss home health and rehab options with her kids to make final dc disposition. Patient reports her son or daughter will transport her home at time of discharge if she is able to dc home. CM will continue to follow and will assist as needed with dc plans/needs. French Professor: Monet Barba RN, [facility] DCPIA - Discharge Planning Initial Assessment Updated by [email or web address]: Monet Barba on 04/21/19 5:46 pm * Is the patient Alert and Oriented? Yes * How many steps to enter\exit or inside your home? RAMP * PCP DR. OBRIEN * Pharmacy [facility] * Preadmission Environment Home Alone * ADLs Independent * Equipment Cane Rolling Walker * List name and contact numbers for known caregivers / representatives who currently or will assist patient after discharge: Umesh Cabral - daughter - [phone] * Verbal permission to speak to the caregivers and representatives has been obtained from the patient. Yes * Community resources currently utilized None * Additional services required to return to the preadmission environment? Yes * Can the patient safely return to the preadmission environment? Yes * Has this patient been hospitalized within the prior 30 days at any hospital? No Coverage Notice Reviewer: [id number] Kishan Brambila Notice Issued Date-Time: 04/26/2019 11:53 Notice Type: IM Discharge Notice Notice Delivered To: Patient Relationship to Patient: Mill Order Scheduler Name: Delivery Method: HAND - Hand Delivered Leeanne Days: Prior Verbal Notification: Recipient Understood Notice: Yes Recipient Signature: Yes Med Rec Note Co-signed by Attending: Coverage Notice Comment: Last DP export: 04/25/19 3:09 p Patient Name: RAPHAEL CABRAL Page 14131 at 7548 All edits/amendments must be made on the electronic document DICTATION DATE: 04/26/19 1038 STEEL RULE DIE MAKER: HARESH 04/26/19 6504 RPT#: [id number] DC DATE: STATUS: ADM IN [facility] [address] [place] [address] END OF REPORT
[2019-04-26] MEDS ORDERED: VANCOMYCIN 1 GM/1 G1 IV ×2 (13:37→14:42)
[2019-04-26 14:00] VITALS: BP 136/71
--- NOTE | 2019-04-26 14:03 | NUR ---
OT NOTE: PT PERFORMED WELL TODAY. BED MOB WITH MIN ASSIST; ABLE TO AMB IN ROOM WITH RW AND CGA. STANDING AT SINK WITH CGA WHILE PERFORMING GROOMING TASKS, HAND AND FACE WASHING. REQUIRED MOD ASSIST TO JOCY SOCKS AND MIN ASSIST FOR GOWN. MIN ASSIST FOR TOILETING. LAKESHIA BRAGG, OTR/L
--- NOTE | 2019-04-26 14:05 | NUR ---
PT RESTING IN BED. NO SIGNS OF DISTRESS. IV TO RIGH HAND PATENT NO REDNESS OR TENDERNESS. HAS BANDAIDS TO KNEE. ON 2L NC. COMPLAINS OF PAIN. MEDICATION GIVEN. DENIES ANY FURTHER NEED AT THIS TIME. CALL LIGHT IN REACH. BED LOW POSITION. NO FAMILY AT BEDSIDE.
--- NOTE | 2019-04-26 14:49 | NUR ---
Nutrition follow-up: Diet: regular PO intake ~50% of meals Labs reviewed' Wt: 135# PO intake fair at this time; pt PO day 2 after knee replacement RDN following.
--- NOTE | 2019-04-26 15:02 | NUR ---
OT NOTE: PT COMPLETED BED MOB WITH MIN A. PT COMPLETED ADL MOB WITH MIN A . PT COMPLETED HAIR GROOMING WITH SET UP. PT COMPLETED ORAL HYGIENE STANDING AT SINK WITH CGA. PT COOPERATIVE. PT EXHIBITED INCREASED FUNCTIONAL PERFORMANCE TODAY. THANK YOU, SARAI SCHREIBER
--- NOTE | 2019-04-26 15:24 | NUR ---
DISCHARGE INSTRUCTIONS GIVEN. SEEMS TO UNDERSTAND. IV LEFT IN PER ORDER. LEFT WITH HOSPITAL STAFF TO GO TO INPATIENT REHAB.
--- NOTE | 2019-04-26 15:37 | MORECARE ---
CASE MANAGEMENT DISCHARGE SUMMARY PATIENT: RAPHAEL CABRAL UNIT: [id number] ADM DATE: 04/21/19 AGE: 83 : 36 SEX: F ROOM/BED: D.2230 AUTHOR: LIZY SHERMAN PHYSICIAN: REFERRING PHYSICIAN: DOE HILL MD DATE OF SERVICE: 04/26/19 Discharge Plan Patient Name: RAPHAEL CABRAL Facility: [facility]:[place] : 1935 Planned Disposition: Inpatient Rehab Anticipated Discharge Date: 04/24/19 Discharge Date: 04/26/2019 Expected LOS: 3 Initial Reviewer: [email or web address] Initial Review Date: 04/21/2019 Generated: 04/26/19 4:36 pm Comments DCP- Discharge Planning Updated by [email or web address]: Pratima Brambila on 04/25/19 3:[address] Patient Name: RAPHAEL CABRAL Admission Status: ER Accout number: [id number] Admission Date: 04-21-2019 : 1935 Admission Diagnosis: Attending: DOE HILL Current LOS: 4 Anticipated DC Date: 04-24-2019 Planned Disposition: Home Primary Insurance: MEDICARE A & B Discharge Planning Comments: CM MET WITH PATIENT AND SHE IS INTERESTED IN INPATIENT REHAB WHEN DISCHARGED. CM TO FOLLOW AND ASSIST. Flight Line Mechanic: Pratima Brambila DCP- Discharge Planning Updated by [email or web address]: Monet Barba on 04/21/19 4:[address] Patient Name: RAPHAEL CABRAL Admission Status: ER Accout number: [id number] Admission Date: 04-21-2019 : 1935 Admission Diagnosis: Attending: DOE HILL Current LOS: 1 Anticipated DC Date: 04-24-2019 Planned Disposition: Home Primary Insurance: MEDICARE A & B Discharge Planning Comments: DC PLAN: Will discuss HH/Rehab options with dtr / son before making final decision. ANTICIPATED DC NEEDS: Wants a BSC at dc. CM met with patient to complete initial dc planning assessment. CM educated patient on the CM role and verbal consent given by patient to complete assessment. CM verified patient's address, phone number, and emergency contact phone numbers. Patient lives at home alone, her son lives in apartment below her but he works out of town a lot. At discharge patient hopes to return home and feels this is a safe discharge if she is able to get around on her knee. CM discussed availability of home health, rehab services, and medical equipment. She is requesting a BSC at dc. RAOUL signed by patient for [facility]. Patient stated once she see's how she is getting around on her knee she will discuss home health and rehab options with her kids to make final dc disposition. Patient reports her son or daughter will transport her home at time of discharge if she is able to dc home. CM will continue to follow and will assist as needed with dc plans/needs. Flight Line Mechanic: Monet Barba RN, [facility] DCPIA - Discharge Planning Initial Assessment Updated by [id number]: Monet Barba on 04/21/19 5:46 pm * Is the patient Alert and Oriented? Yes * How many steps to enter\exit or inside your home? RAMP * PCP DR. OBRIEN * Pharmacy [facility] * Preadmission Environment Home Alone * ADLs Independent * Equipment Cane Rolling Walker * List name and contact numbers for known caregivers / representatives who currently or will assist patient after discharge: Umesh Cabral - daughter - [phone] * Verbal permission to speak to the caregivers and representatives has been obtained from the patient. Yes * Community resources currently utilized None * Additional services required to return to the preadmission environment? Yes * Can the patient safely return to the preadmission environment? Yes * Has this patient been hospitalized within the prior 30 days at any hospital? No Coverage Notice Reviewer: [id number] Kishan Brambila Notice Issued Date-Time: 04/26/2019 11:53 Notice Type: IM Discharge Notice Notice Delivered To: Patient Relationship to Patient: Batching Operator Name: Delivery Method: HAND - Hand Delivered Leeanne Days: Prior Verbal Notification: Recipient Understood Notice: Yes Recipient Signature: Yes Med Rec Note Co-signed by Attending: Coverage Notice Comment: Last DP export: 04/26/19 10:58 a Patient Name: RAPHAEL CABRAL Page 73723 at 0595 All edits/amendments must be made on the electronic document DICTATION DATE: 04/26/19 9237 EDUCATION REPORTER: HARESH 04/26/19 9584 RPT#: [id number] DC DATE:04/26/19 STATUS: DIS IN [facility] [address] [address] END OF REPORT
--- NOTE | 2019-04-27 11:00 | OP ---
PATIENT NAME: RAPHAEL CABRAL MEDICAL RECORD: [id number] :[birth year] LOCATION:D.MS [id number] ADMISSION DATE:04/21/19 SURGEON: MADI BROWN MD DATE OF OPERATION: 04/22/2019 PREOPERATIVE DIAGNOSIS: Infected right knee. POSTOPERATIVE DIAGNOSIS: Infected right knee. PROCEDURE: Arthroscopic irrigation and debridement of right knee. SURGEON: Madi Brown MD ANESTHESIA: General. INTRAOPERATIVE COMPLICATIONS: None. SUMMARY OF PATHOLOGIC FINDINGS: The patient was found to have substantial amounts of suprapatellar phlegmon appearing material. Fluid that was extracted was turbid and it preoperatively had been sent for evaluation and had a higher white count than comfort. The decision was made to proceed with the below surgery. OPERATIVE SUMMARY IN DETAIL: After obtaining the appropriate preoperative orthopedic surgery consent as well as anesthetic consultation, evaluation and clearance, the patient was brought to the operating room and placed on the operating table in supine position. After general laryngeal mask airway was administered, tourniquet was placed about the proximal aspect of the right lower extremity. Right lower extremity was then prepped and draped in a routine sterile fashion. The leg was elevated and exsanguinated and tourniquet was inflated to 350 mmHg. Routine inferolateral portal was established. The knee was then drained. Superomedial and inferomedial portal was established. A total of 12 liters of fluid was utilized to debride the medial and lateral recess using the arthroscopic resector as well as the suprapopliteal recess. A mild amount of osteoarthritis was noted. 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 After copiously irrigating and debriding with the arthroscopic resector, the knee was insufflated with 30 cc of 0.25% Marcaine with epinephrine. Arthroscopy portals were closed in routine interrupted fashion using 4-0 Prolene. Sterile dressings were applied. The patient was awakened and taken to the recovery room in stable condition. All final needle and sponge counts were correct. TRANSINT:[id number] Voice Confirmation ID: [id number] DOCUMENT ID: [id number] MADI BROWN MD at 1100 CC: [id number] DICTATION DATE: 04/27/19916 LINOTYPE OPERATOR: 04/27/19 0941 DIS IN 04/26/19 [facility] [address] [facility] [place] [address]
== END 2019-04-26 15:25 | DRG 488 ==
LOC: D.ER 09:13 → D.MS 15:36
PROVIDERS: Family Medicine; Orthopaedic Surgery; ADMIT Internal Medicine Nephrology; ATTEND Internal Medicine Nephrology
PROC: 0SBC4ZZ Excision of Right Knee Joint, Percutaneous Endoscopic Approach (ICD-10-PCS; principal; 2019-04-22 08:00)
DX: M00.9 Pyogenic arthritis, unspecified (principal); N39.0 Urinary tract infection, site not specified; D64.9 Anemia, unspecified; E83.42 Hypomagnesemia; I10 Essential (primary) hypertension; G89.29 Other chronic pain; I16.0 Hypertensive urgency

== ENCOUNTER 2019-04-26 15:35 | Inpatient (IN) | payer MEDICARE, OTHER ==
[~2019-04-26] VITALS: Ht 152.4 cm; Wt 62.6 kg
[~2019-04-26 15:35] MED LIST changes: +BAYER CHEWABLE81 MG PO; +CALMOSEPTINE OI71 GM TOPICAL; +CYCLOBENZAPRINE10 MG PO; +FERRLECIT62.5 MG/2 IVPB; +FLORAJEN3 CAPS460 MG PO; +HYDROCODON-ACE1 EAC7 PO; +LOVENOX40 MG/0.4 SC; +MIRALAX17 GM PO; +PROTONIX40 MG PO; +VANCOMYCIN 1 GM/1 G1 IV; +ZANAFLEX4 MG PO; +ZOFRAN ODT4 MG/UDTAB PO
[2019-04-26 15:36] VITALS: BP 139/65; BMI 27.0
[2019-04-27 08:14] VITALS: BP 156/83
[2019-04-27 14:27] VITALS: BMI 26.9
[2019-04-27 20:00] VITALS: BP 103/58
[2019-04-28 08:30] LABS: ANION GAP 11.7 mmol/L (8-16); CALCIUM 9.9 mg/dL (8.5-10.1); CARBON DIOXIDE 30.6 mmol/L (21.0-32.0); CREATININE - SERUM 0.9 mg/dL (0.6-1.3); POTASSIUM - SERUM 3.3 mmol/L (3.5-5.1)
[2019-04-28 08:42] VITALS: BP 151/72
[2019-04-28 09:50] LABS: BASOPHILS 0.7 % (0-2); EOSINOPHILS 3.8 % (0-7); HEMATOCRIT 32.6 % (36.0-48.0); HEMOGLOBIN 10.4 g/dL (12-16); IMMATURE GRANULOCYTES 2.6 % (0-5); LYMPHOCYTES 14.6 % (15-50); MCH 29.1 pg (26.0-34.0); MCHC 31.9 g/dL (31.0-37.0); MCV 91.1 fL (80.0-100.0); MEAN PLATELET VOLUME 9.2 fL (7.4-10.4); MONOCYTES 11.5 % (2-11); NEUTROPHILS 66.8 % (40-80); PLATELET COUNT 372 10x3/uL (130-400); RBC 3.58 10x6/uL (4.00-5.40); RDW 13.6 % (11.5-14.5); WBC 12.2 10x3/uL (4.8-10.8)
[2019-04-28 20:44] VITALS: BP 143/79
[2019-04-29 08:00] VITALS: BP 130/64
[2019-04-30 08:14] VITALS: BP 175/86
[2019-04-30 19:03] VITALS: BP 142/66
[2019-05-01 07:34] LABS: ANION GAP 9.1 mmol/L (8-16); CALCIUM 9.4 mg/dL (8.5-10.1); CARBON DIOXIDE 31.3 mmol/L (21.0-32.0); CREATININE - SERUM 0.9 mg/dL (0.6-1.3); POTASSIUM - SERUM 3.4 mmol/L (3.5-5.1)
[2019-05-01 09:00] VITALS: BP 167/79
[2019-05-01 20:05] VITALS: BP 132/60
[2019-05-02 08:10] VITALS: BP 149/65
[2019-05-02 12:52] LABS: BASOPHILS 0.5 % (0-2); EOSINOPHILS 1.3 % (0-7); HEMATOCRIT 27.3 % (36.0-48.0); HEMOGLOBIN 8.8 g/dL (12-16); IMMATURE GRANULOCYTES 2.4 % (0-5); MCH 29.7 pg (26.0-34.0); MCHC 32.2 g/dL (31.0-37.0); MCV 92.2 fL (80.0-100.0); MEAN PLATELET VOLUME 8.5 fL (7.4-10.4); MONOCYTES 15.7 % (2-11); NEUTROPHILS 69.1 % (40-80); RBC 2.96 10x6/uL (4.00-5.40); RDW 14.9 % (11.5-14.5); WBC 13.7 10x3/uL (4.8-10.8)
[2019-05-02 12:54] LABS: PLATELET COUNT 279 10x3/uL (130-400)
[2019-05-02 13:09] VITALS: Ht 152.4 cm; Wt 62.6 kg
[2019-05-02 14:15] LABS: ERYTHROCYTE SEDIMENTATION RATE 135 mm/hr (0-30)
[2019-05-02 15:30] LABS: PROTEIN - BODY FLUID 4.8 G/DL
[2019-05-02 17:54] LABS: EOS BF 2 %; MACROPHAGES BF 4 %; MESOTHELIALS BF 3 %; NEUT - BF 84 %
[2019-05-02 20:27] VITALS: BP 95/68
[2019-05-03 07:35] LABS: BASOPHILS 0.6 % (0-2); EOSINOPHILS 2.1 % (0-7); HEMATOCRIT 26.5 % (36.0-48.0); HEMOGLOBIN 8.3 g/dL (12-16); IMMATURE GRANULOCYTES 2.7 % (0-5); LYMPHOCYTES 13.8 % (15-50); MCH 28.9 pg (26.0-34.0); MCHC 31.3 g/dL (31.0-37.0); MCV 92.3 fL (80.0-100.0); MEAN PLATELET VOLUME 8.8 fL (7.4-10.4); MONOCYTES 17.8 % (2-11); PLATELET COUNT 297 10x3/uL (130-400); RBC 2.87 10x6/uL (4.00-5.40); RDW 15.1 % (11.5-14.5); WBC 10.6 10x3/uL (4.8-10.8)
[2019-05-03 07:43] LABS: ANION GAP 10.1 mmol/L (8-16); CALCIUM 9.1 mg/dL (8.5-10.1); CARBON DIOXIDE 30.6 mmol/L (21.0-32.0); CREATININE - SERUM 1.2 mg/dL (0.6-1.3); POTASSIUM - SERUM 3.7 mmol/L (3.5-5.1)
[2019-05-03 08:02] VITALS: BP 145/70
[2019-05-03] MEDS ORDERED: VANCOMYCIN 750750 MG IV (12:38)
[2019-05-03] MEDS ORDERED: ZOSYN 3.3753.375 G1 IV (12:38)
[2019-05-03] MEDS ORDERED: K-DUR20 MEQ PO (12:39)
[2019-05-03] MEDS ORDERED: CALMOSEPTINE OI71 GM TOPICAL (17:06)
[2019-05-03] MEDS ORDERED: FERRLECIT62.5 MG/2 IVPB (17:08)
--- NOTE | 2019-05-04 10:46 | RHP ---
PATIENT: RAPHAEL CABRAL MEDICAL RECORD: [id number] ACCOUNT: [id number] [facility] [birth year] ADMISSION DATE: 04/26/19 REHABILITATION HISTORY AND PHYSICAL EXAMINATION POST ADMISSION PHYSICIAN EXAMINATION DATE OF ADMISSION: 04/26/2019 ADMITTING DIAGNOSES: Muscular wasting and disuse atrophy. HISTORY OF PRESENT ILLNESS: The patient is an 83-year-old female patient, who presented to the Emergency Room after acute onset of right knee pain, apparently it started the night prior to hospitalization. She denied any known trauma. She had sustained a fall on 03/09/2019 where she fell backwards and felt dizzy. Upon admit to the hospital, she was noted to have a speech abnormalities and facial twitching. 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 States that she had had pain around her head, ears, and neck for approximately 2 weeks prior to this. She had an orthopedic surgeon consult for knee aspiration. Her white count was 62,000 with 94% neutrophils. She had a noted moderate subpatellar effusion and mild tricompartmental osteoarthritis without acute fracture or dislocation. She had an I&D of her right knee on 04/22/2019. She has progressed slowly with therapy. She is currently on IV antibiotics, receiving supplemental O2. She is noted to be on chronic O2. She has got had acute pain, impaired mobility, gait disturbance, debility, deconditioning, high fall risk and self-care deficits. These are all barriers to her discharge home at this time. She lives at home alone where her son lives in a basement area, but travels with work. She was independent with her mobility and ADLs prior to this. She is currently set up for mod assist with her ADLs, mod assist to total assist for mobility. She and her family would like for her to return home hopefully at her prior level of functioning or possibly even better after her stay here. COMORBIDITIES: In this patient include septic right knee, anemia, low magnesium level, hypertension, chronic pain, history of CVA, iron deficiency, deconditioning, debility, impaired mobility and gait disturbance. PAST MEDICAL HISTORY: Significant for a CVA, history of aneurysm, tremor, parathyroid problems, hypertension, arthritis, chronic back pain, osteoporosis and she has had dysfunctional uterine bleeding in the past. PAST SURGICAL HISTORY: Includes hysterectomy. ALLERGIES: MORPHINE. CURRENT MEDICATIONS: Include Floranex 460 mg daily, Inderal 20 mg daily, MiraLax 17 grams in 8 ounces of water daily, nifedipine 30 mg daily of the XL, enoxaparin 40 mg subQ daily, Cymbalta 60 mg daily, aspirin chewable 81 mg daily, Protonix 40 mg daily, Zocor 40 mg at bedtime. She is on vancomycin 1 gram q.24 hours. Pharmacy is managing this. Zofran 4 mg q.6 hours p.r.n., Linden 5/325 one tab q.4 hours p.r.n., Flexeril 10 mg b.i.d. p.r.n., and Calmoseptine ointment. HABITS: No current alcohol or tobacco use. HISTORY AND PHYSICAL [id number] RAPHAEL CABRAL FAMILY HISTORY: Noncontributory. SOCIAL HISTORY: The patient hopes to return back home and get back to her prior level of functioning. REVIEW OF SYSTEMS: GENERAL: The patient complains of some weakness or fatigue. HEENT: Denies cold, cough, or congestion. CARDIOVASCULAR: Denies chest pain. PHYSICAL EXAMINATION: VITAL SIGNS: Stable, afebrile. GENERAL: A well-developed female, in no acute distress, alert upon exam. HEENT: Normocephalic and atraumatic. Mucosa moist. NECK: Supple without adenopathy. LUNGS: Clear in upper shore. HEART: Regular rate and rhythm. No murmurs, rubs, or gallops. ABDOMEN: Soft, benign, and nondistended. Positive bowel sounds times 4. EXTREMITIES: Does have some normal appearing postop swelling to her knee. NEUROLOGIC: She does have noted proximal muscle weakness. ASSESSMENT: This is an 83-year-old female patient admitted to the rehab with a working diagnosis of debility, with noted protein-calorie malnutrition. The patient has potential to make improvement. We instituted the following multidisciplinary therapies including but not limited to physical, occupational, respiratory, speech, nutritional services, prosthetics and orthotics. Given her complex medical condition and risk for more complications, rehabilitation services cannot be provided at a low level of care such as skilled nurse facility. PLAN: 1. Admit to [facility] for intensive inpatient therapy to include the following disciplines: A. Physical therapy to improve gait, all transfer skills and bed mobility to a modified independent level. B. Occupational therapy to assist with activities of daily living. C. Case management to assist with discharge planning and placement options. D. Nutrition to assist with nutritional needs. E. Rehabilitation nursing to assist in monitoring the patient's underlying medications conditions and to assist with any type of bowel or bladder management. 2. The patient's current medication will be continued. 3. The patient will be placed on standard fall precautions. 4. The patient's estimated length of stay is approximately 7-10 days. 5. We will discuss the patient during care team staff meeting this week. TRANSINT:[id number] Voice Confirmation ID: [id number] DOCUMENT ID: [id number] CLAYTON notes whether there has been none or any medical/functional change since admission: - No change since pre-admission screen. CLAYTON attests patient continues to be appropriate for IRF: HISTORY AND PHYSICAL [id number] RAPHAEL CABRAL - Continues to be appropriate. MORGAN HERNANDEZ MD at 1046 CC: [id number] DICTATION DATE: 04/27/19 0839 PET CARE ASSISTANT: 04/27/19 1007 DIS IN 05/03/19 [facility] [address] [place] [address]
== END 2019-05-03 15:22 | disposition short-term general hospital (02) | DRG 948 ==
LOC: D.REHAB 15:35
PROVIDERS: Orthopaedic Surgery; ADMIT Emergency Medicine; ATTEND Emergency Medicine
DX: R53.81 Other malaise (principal); M00.9 Pyogenic arthritis, unspecified; N39.0 Urinary tract infection, site not specified; M62.50 Muscle wasting and atrophy, not elsewhere classified, unspecified site; D64.9 Anemia, unspecified; D50.9 Iron deficiency anemia, unspecified; R26.9 Unspecified abnormalities of gait and mobility; G89.29 Other chronic pain; E83.42 Hypomagnesemia; I16.0 Hypertensive urgency

== ENCOUNTER 2019-05-03 13:48 | Inpatient (IN) | payer MEDICARE, OTHER ==
[~2019-05-03] VITALS: Ht 152.4 cm; Wt 62.6 kg
[~2019-05-03 13:48] MED LIST changes: +K-DUR20 MEQ PO; +VANCOMYCIN 750750 MG IV; +ZOSYN 3.3753.375 G1 IV
--- NOTE | 2019-05-03 15:24 | NUR ---
RECEIVED PT TO ROOM 2222 VIA WHEECHAIR, MAX ASSIST X2 FROM CHAIR TO BED. PT A/O X4, UMKUMIUT, RESP EVEN AND NONLABORED ON 2L. LT FA IV NOTED. WILL ASSESS PT AND START PLAN OF CARE.
[2019-05-03 15:27] VITALS: BP 113/55; BMI 27.0
[2019-05-03 16:21] LABS: BASOPHILS 0.8 % (0-2); EOSINOPHILS 1.9 % (0-7); HEMATOCRIT 26.3 % (36.0-48.0); HEMOGLOBIN 8.4 g/dL (12-16); IMMATURE GRANULOCYTES 2.2 % (0-5); LYMPHOCYTES 13.8 % (15-50); MCH 29.8 pg (26.0-34.0); MCHC 31.9 g/dL (31.0-37.0); MCV 93.3 fL (80.0-100.0); MEAN PLATELET VOLUME 8.8 fL (7.4-10.4); MONOCYTES 15.1 % (2-11); NEUTROPHILS 66.2 % (40-80); PLATELET COUNT 301 10x3/uL (130-400); RBC 2.82 10x6/uL (4.00-5.40); RDW 15.2 % (11.5-14.5); WBC 12.9 10x3/uL (4.8-10.8)
[2019-05-03 16:24] VITALS: BP 122/62
[2019-05-03 16:38] LABS: ANION GAP 7.8 mmol/L (8-16); CALCIUM 9.3 mg/dL (8.5-10.1); CARBON DIOXIDE 31.3 mmol/L (21.0-32.0); CREATININE - SERUM 1.2 mg/dL (0.6-1.3); POTASSIUM - SERUM 4.1 mmol/L (3.5-5.1)
[2019-05-03 16:44] LABS: C-REACTIVE PROTEIN 23.6 mg/dL (0.0-0.9)
--- NOTE | 2019-05-03 16:58 | NUR ---
SUTURES REMOVED FROM RT KNEE. PT TOLERATED WELL.
[2019-05-03] MEDS ORDERED: CALMOSEPTINE OI71 GM TOPICAL (17:06)
[2019-05-03] MEDS ORDERED: FERRLECIT62.5 MG/2 IVPB (17:08)
[2019-05-03 18:59] LABS: ERYTHROCYTE SEDIMENTATION RATE 120 mm/hr (0-30)
[2019-05-03 20:00] VITALS: BP 131/58
[2019-05-04] VITALS (12 sets, daily range): BP systolic 118–139; BP diastolic 47–74
[2019-05-04 06:28] LABS: HEMATOCRIT 28.2 % (36.0-48.0); MCH 29.5 pg (26.0-34.0); MCHC 31.9 g/dL (31.0-37.0); MCV 92.5 fL (80.0-100.0); MEAN PLATELET VOLUME 8.8 fL (7.4-10.4); RBC 3.05 10x6/uL (4.00-5.40); RDW 15.3 % (11.5-14.5)
[2019-05-04 06:48] LABS: ANION GAP 11.3 mmol/L (8-16); CALCIUM 9.8 mg/dL (8.5-10.1); CARBON DIOXIDE 31.4 mmol/L (21.0-32.0); CREATININE - SERUM 1.1 mg/dL (0.6-1.3); POTASSIUM - SERUM 3.7 mmol/L (3.5-5.1)
--- NOTE | 2019-05-04 07:50 | NUR ---
ALERT AND ORIENTED. LUNGS CLEAR BILATERALLY IN ALL ROMO. DRY COUGH NOTED. HEART SOUNDS S1 AND S2 HEARD IN ALL ROMO. BOWEL SOUNDS ACTIVE X 4. EDUCATION PROVIDED ON NEED FOR UA. STATES JUST USED BEDPAN. NEW BEDPAN AND COLLECTION CUP PLACED AT BEDSIDE. VERBALIZED UNDERSTANDING. MILD SWELLING NOTED TO BILATERAL KNEES. STATES ONLY HURTS IF WALKS. IV TO LEFT ARM PATENT WITHOUT REDNESS. DENIES PAIN. DENIES NEEDS. BED LOW. FALL PRECAUTIONS IN PLACE. CALL HARRISON AND PERSONAL ITEMS IN REACH. WILL CONTINUE TO MONITOR.
--- NOTE | 2019-05-04 09:20 | NUR ---
PREOP MEDICATION GIVEN PER ORDER
[2019-05-04 10:16] LABS: APPEARANCE CLEAR (CLEAR); BILIRUBIN NEGATIVE (NEGATIVE); COLOR STRAW (YELLOW); GLUCOSE NEGATIVE (NEGATIVE); KETONE NEGATIVE (NEGATIVE); NITRITE NEGATIVE (NEGATIVE); PROTEIN NEGATIVE (NEGATIVE); SPECIFIC GRAVITY 1.005 (1.005-1.020); UROBILINOGEN NORMAL (NORMAL)
--- NOTE | 2019-05-04 11:20 | NUR ---
PATIENT RETURNED FROM PROCEDURE. VITALS STABLE. EZEQUIEL WRAP IN PLACE TO LEFT LEG. WILL CONTINUE TO MONITOR.
--- NOTE | 2019-05-04 13:18 | NUR ---
RESTING IN BED. VITALS REMAIN STABLE. DENIES PAIN. DENIES NEEDS. SON AT BEDSIDE. WILL CONTINUE TO MONITOR.
--- NOTE | 2019-05-04 15:05 | NUR ---
PATIENT CONFUSED. STATES SOMETHING IN BATHROOM. CLIMBING OUT OF BED. KATT CORDOVA NOTIFIED. NO ORDERS AT THIS TIME. WILL CONTINUE TO MONITOR.
[2019-05-04 15:12] LABS: % SATURATION 25 % (15-55); IRON 37 ug/dl (35-150); TOTAL IRON BIND CAPACITY 146 ug/dl (260-445); UNSAT IRON BIND CAPACITY 109 ug/dl (150-375)
--- NOTE | 2019-05-04 15:26 | NUR ---
PATIENT SLEEPING. WILL CONTINUE TO MONITOR.
--- NOTE | 2019-05-04 18:00 | NUR ---
VITALS REMAIN STABLE. WILL CONTINUE TO MONITOR.
--- NOTE | 2019-05-04 18:23 | NUR ---
PATIENT SLEEPING. BED LOW. CALL HARRISON AND PERSONAL ITEMS IN REACH. FALL PRECAUTIONS IN PLACE.
--- NOTE | 2019-05-04 19:00 | NUR ---
BEDSIDE REPORT RECEIVED AND CARE OF PT ASSUMED. PT LYING IN SUPINE POSITION WITH EYES CLOSED AND UNLABLRED BREATHING. O2 IN USE VIA NC AT 5L. BED ALARM IN USE FOR SAFETY.
--- NOTE | 2019-05-04 21:07 | NUR ---
HS MEDICATIONS GIVEN.
--- NOTE | 2019-05-04 23:09 | NUR ---
PT CLEANED AND ALL LINEN AND GOWN CHANGED DUE TO INCONTINENCE OF URINE. PLACED PUREWICK EXTERNAL CATHETER AFTER PT TEACHING PERFORMED.
[2019-05-05] VITALS: BP 121/52
[2019-05-05 04:00] VITALS: BP 122/64
[2019-05-05 06:34] LABS: BASOPHILS 0.4 % (0-2); EOSINOPHILS 0 % (0-7); HEMATOCRIT 27.3 % (36.0-48.0); HEMOGLOBIN 8.4 g/dL (12-16); IMMATURE GRANULOCYTES 1.5 % (0-5); MCH 29.2 pg (26.0-34.0); MCHC 30.8 g/dL (31.0-37.0); MEAN PLATELET VOLUME 8.7 fL (7.4-10.4); MONOCYTES 11.6 % (2-11); NEUTROPHILS 77.5 % (40-80); PLATELET COUNT 374 10x3/uL (130-400); RBC 2.88 10x6/uL (4.00-5.40); RDW 15.3 % (11.5-14.5); WBC 10.5 10x3/uL (4.8-10.8)
[2019-05-05 06:45] LABS: MCV 94.8 fL (80.0-100.0)
[2019-05-05 06:59] LABS: ANION GAP 11.5 mmol/L (8-16); C-REACTIVE PROTEIN 15.1 mg/dL (0.0-0.9); CALCIUM 9.1 mg/dL (8.5-10.1); CARBON DIOXIDE 29.7 mmol/L (21.0-32.0); POTASSIUM - SERUM 4.2 mmol/L (3.5-5.1)
[2019-05-05 07:03] LABS: CREATININE - SERUM 1.4 mg/dL (0.6-1.3)
--- NOTE | 2019-05-05 07:16 | MORECARE ---
CASE MANAGEMENT DISCHARGE SUMMARY PATIENT: RAPHAEL CABRAL UNIT: [id number] ADM DATE: 05/03/19 AGE: 83 : 36 SEX: F ROOM/BED: D.2222 AUTHOR: LIZY SHEMRAN PHYSICIAN: REFERRING PHYSICIAN: MADI BROWN MD DATE OF SERVICE: 05/05/19 Discharge Plan Patient Name: RAPHAEL CABRAL [facility] [facility] 1935 Planned Disposition: Inpatient Rehab Anticipated Discharge Date: Discharge Date: Expected LOS: Initial Reviewer: [email or web address] Initial Review Date: 05/05/2019 Generated: 05/05/19 8:15 am DCPIA - Discharge Planning Initial Assessment Updated by [email or web address]: Miley Springer on 05/05/19 7:12 am * Is the patient Alert and Oriented? No * How many steps to enter\exit or inside your home? Ramp/0 * PCP Dr. De Leon * Pharmacy [facility] * Preadmission Environment Acute Inpatient Rehab * Facility Name [facility] * ADLs Partial Dependent * Partial ADLs (Assistance needed) Ambulation * Equipment Bedside Commode Cane Rolling Walker * List name and contact numbers for known caregivers / representatives who currently or will assist patient after discharge: Catalina Cabral - son [phone] Umesh Henderson - DTN - [phone] * Verbal permission to speak to the caregivers and representatives has been obtained from the patient. Yes * Community resources currently utilized None * Additional services required to return to the preadmission environment? No * Can the patient safely return to the preadmission environment? Yes * Has this patient been hospitalized within the prior 30 days at any hospital? Yes Patient Name: RAPHAEL CABRAL Page 51997 at 0716 All edits/amendments must be made on the electronic document DICTATION DATE: 05/05/19714 URBAN DESIGN CONSULTANT: HARESH 05/05/19714 RPT#: [id number] DC DATE: STATUS: ADM IN [facility] [address] [place] [address] END OF REPORT
--- NOTE | 2019-05-05 07:23 | MORECARE ---
CASE MANAGEMENT DISCHARGE SUMMARY PATIENT: RAPHAEL CABRAL UNIT: [id number] ADM DATE: 05/03/19 AGE: 83 : 36 SEX: F ROOM/BED: D.2222 AUTHOR: WHIT,DOC PHYSICIAN: REFERRING PHYSICIAN: MADI BROWN MD DATE OF SERVICE: 05/05/19 Discharge Plan Patient Name: RAPHAEL CABRAL Facility: [facility]:[place] : 1935 Planned Disposition: Inpatient Rehab Anticipated Discharge Date: Discharge Date: Expected LOS: Initial Reviewer: [email or web address] Initial Review Date: 05/05/2019 Generated: 05/05/19 8:23 am Comments DCP- Discharge Planning Updated by [email or web address]: Miley Springer on 05/05/19 6:[address] Patient Name: RAPHAEL CABRAL Admission Status: Elective Accout number: [id number] Admission Date: 05-03-2019 : 1935 Admission Diagnosis: Attending: MADI BROWN Current LOS: 2 Anticipated DC Date: Planned Disposition: Inpatient Rehab Primary Insurance: MEDICARE A & B Discharge Planning Comments: CM met with son to discuss discharge planning/needs. He states that his mother has been in inpatient rehab and would like her to return there when ready to discharge from acute care. From inpatient rehab he would like her to be discharged home. She lives alone, but he states he lives in an apartment below her and he has also arranged for someone to stay with her 29/03 when she is released from rehab. CM will continue to follow and assist with discharge planning/needs. Organ Tuner Electronic: Miley Springer DCPIA - Discharge Planning Initial Assessment Updated by [id number]: Miley Springer on 05/05/19 7:12 am * Is the patient Alert and Oriented? No * How many steps to enter\exit or inside your home? Ramp/0 * PCP Dr. De Leon * Pharmacy [facility] near [facility] [place] * Preadmission Environment Acute Inpatient Rehab * Facility Name [facility] * ADLs Partial Dependent * Partial ADLs (Assistance needed) Ambulation * Equipment Bedside Commode Cane Rolling Walker * List name and contact numbers for known caregivers / representatives who currently or will assist patient after discharge: Catalina Cabral - son [phone] Umesh Henderson - DTR - [phone] * Verbal permission to speak to the caregivers and representatives has been obtained from the patient. Yes * Community resources currently utilized None * Additional services required to return to the preadmission environment? No * Can the patient safely return to the preadmission environment? Yes * Has this patient been hospitalized within the prior 30 days at any hospital? Yes Last DP export: 05/05/19 6:16 a Patient Name: RAPHAEL CABRAL Page 47506 at 0723 All edits/amendments must be made on the electronic document DICTATION DATE: 05/05/19722 CORRECTIONAL OFFICER CAPTAIN: HARESH 05/05/19722 RPT#: [id number] DC DATE: STATUS: ADM IN [facility] [address] [place] [address] END OF REPORT
[2019-05-05 07:50] VITALS: BP 121/59
--- NOTE | 2019-05-05 08:14 | NUR ---
CONFUSED AND DISORIENTED. LUNGS CLEAR BILATERALLY IN ALL ROMO. HEART SOUNDS S1 AND S2 HEARD IN ALL ROMO. BOWEL SOUNDS ACTIVE X 4. SKIN INTACT WITHOUT REDNESS. SWELLING NOTED TO BLE. EZEQUIEL WRAP TO LEFT LEG. IV TO LFA PATENT WITHOUT REDNESS. O2 IN PLACE AT 5L. DENIES PAIN. DENIES NEEDS. BED LOW. CALL HARRISON AND PERSONAL ITEMS IN REACH. WILL CONTINUE TO MONITOR.
[2019-05-05 09:20] LABS: ERYTHROCYTE SEDIMENTATION RATE 140 mm/hr (0-30)
--- NOTE | 2019-05-05 10:00 | NUR ---
RESTING IN BED. DENIES PAIN. DENIES NEEDS. WILL CONTINUE TO MONITOR.
[2019-05-05 12:46] VITALS: BP 115/55
--- NOTE | 2019-05-05 13:39 | NUR ---
RESTING IN BED. DENIES PAIN. DENIES NEEDS. WILL CONTINUE TO MONITOR.
--- NOTE | 2019-05-05 15:30 | NUR ---
PATIENT SLEEPING. WILL CONTINUE TO MONITOR.
--- NOTE | 2019-05-05 15:54 | NUR ---
REPORT GIVEN TO KEANU BUSTOS WHO IS TAKING OVER PATIENT'S CARE.
--- NOTE | 2019-05-05 16:06 | NUR ---
PT SITTING UP IN BED WITH EYES OPEN, ALERT AND ORIENTED. CURRENTLY RCVING 2L VIA NC. IV LOCATED IN LEFT FOREARM RUNNING 1/2 NS @ 30ML. DENIES ANY NEEDS AT THIS TIME, WILL CONT TO MONITOR. BED LOW, CALL LIGHT IN REACH, RAILS UP X 2.
[2019-05-05 16:48] VITALS: BP 97/55
--- NOTE | 2019-05-05 19:00 | NUR ---
BEDSIDE REPORT RECEIVED AND CARE OF PT ASSUMED. PT LYING IN SUPINE POSITION WATCHING TV. REPAIR OPERATOR IN ROOM AT THIS TIME....PUREWICK PLACED PER PT REQUEST TO CONTROL INCONTINENCE THAT OCCURS AT NIGHT. IV TO LEFT FA PATENT WITH 1/2 NS INFUSING AT 30 ML/HR. DRESSING ON LEFT KNEE CLEAN, DRY AND INTACT.
--- NOTE | 2019-05-05 19:48 | NUR ---
GAVE NORCO PO PER REQUEST FOR PAIN. WILL MONITOR FOR EFFECTIVENESS.
--- NOTE | 2019-05-05 19:48 | NUR ---
HS MEDICATIONS GIVEN. WILL CONTINUE TO MONITOR FOR NEEDS.
[2019-05-05 20:00] VITALS: BP 139/53
[2019-05-06] VITALS: BP 120/59
[2019-05-06 04:00] VITALS: BP 160/79
[2019-05-06 07:04] LABS: ANION GAP 8.7 mmol/L (8-16); CALCIUM 8.9 mg/dL (8.5-10.1); CARBON DIOXIDE 31.2 mmol/L (21.0-32.0); CREATININE - SERUM 1.4 mg/dL (0.6-1.3); POTASSIUM - SERUM 3.9 mmol/L (3.5-5.1)
[2019-05-06 07:21] LABS: BASOPHILS 1.4 % (0-2); EOSINOPHILS 3.1 % (0-7); HEMOGLOBIN 8.4 g/dL (12-16); IMMATURE GRANULOCYTES 3.3 % (0-5); LYMPHOCYTES 21.2 % (15-50); MCH 29.3 pg (26.0-34.0); MCHC 31.1 g/dL (31.0-37.0); MCV 94.1 fL (80.0-100.0); MEAN PLATELET VOLUME 8.6 fL (7.4-10.4); MONOCYTES 15.2 % (2-11); NEUTROPHILS 55.8 % (40-80); PLATELET COUNT 380 10x3/uL (130-400); RBC 2.87 10x6/uL (4.00-5.40); RDW 15.4 % (11.5-14.5); WBC 9.4 10x3/uL (4.8-10.8)
[2019-05-06 12:30] VITALS: BP 160/83
[2019-05-06 17:04] VITALS: BP 138/70
--- NOTE | 2019-05-06 19:00 | NUR ---
BEDSIDE REPORT RECEIVED AND CARE OF PT ASSUMED. PT LYING IN SUPINE POSITION WITH EYES CLOSED. LEFT FA PATENT WITH 1/2 NS INFUSING AT 30 ML/HR. DRESSING ON LEFT KNEE CLEAN AND DRY. WILL MONITOR FOR NEEDS.
[2019-05-06 20:00] VITALS: BP 134/67
--- NOTE | 2019-05-06 20:31 | NUR ---
HS MEDICATIONS GIVEN TO INCLUDE NORCO PO PER REQUEST FOR PAIN. WILL CONTINUE TO MONITOR FOR NEEDS.
[2019-05-07 04:00] VITALS: BP 147/71
--- NOTE | 2019-05-07 04:45 | NUR ---
ASSISTED PT TO USE BEDPAN TO HAVE LOOSE BM AND URINATE.
--- NOTE | 2019-05-07 04:57 | NUR ---
PT BATHED AND ALL LINENS AND GOWN CHANGED. HAIR CLEANSED WITH SHAMPOO CAP.
[2019-05-07 06:36] LABS: BASOPHILS 0.8 % (0-2); EOSINOPHILS 4.1 % (0-7); HEMATOCRIT 29.4 % (36.0-48.0); HEMOGLOBIN 8.9 g/dL (12-16); LYMPHOCYTES 16.5 % (15-50); MCH 29.1 pg (26.0-34.0); MCHC 30.3 g/dL (31.0-37.0); MEAN PLATELET VOLUME 8.5 fL (7.4-10.4); MONOCYTES 16.9 % (2-11); NEUTROPHILS 56.7 % (40-80); PLATELET COUNT 377 10x3/uL (130-400); RBC 3.06 10x6/uL (4.00-5.40); RDW 15.5 % (11.5-14.5); WBC 9.3 10x3/uL (4.8-10.8)
[2019-05-07 06:39] LABS: MCV 96.1 fL (80.0-100.0)
[2019-05-07 06:52] LABS: ANION GAP 9.6 mmol/L (8-16); CARBON DIOXIDE 32.7 mmol/L (21.0-32.0); CREATININE - SERUM 1.2 mg/dL (0.6-1.3); POTASSIUM - SERUM 4.3 mmol/L (3.5-5.1); VANCOMYCIN - RANDOM 10.8 ug/mL (10.0-20.0)
--- NOTE | 2019-05-07 07:45 | NUR ---
REC'D PT LYING IN BED AOX4 RESP EVEN AND UNLABORED PT DENIES PAIN AT THIS TIME LUNG SOUNDS CLEAR. IV TO LEFT FOREARM PATENT AND INTACT AT THIS TIME. BED AT LOWEST SETTING WITH BRAKES DOOR PERSON LIGHT WITHIN REACH WILL CONTINUE TO MONITOR
[2019-05-07 08:35] VITALS: BP 148/70
[2019-05-07 12:31] VITALS: BP 175/91
[2019-05-07 17:42] VITALS: BP 133/58
--- NOTE | 2019-05-07 19:00 | NUR ---
BEDSIDE REPORT RECEIVED AND CARE OF PT ASSUMED. PT LYING IN SUPINE POSITION WITH EYES CLOSED. IV TO LEFT FA PATENT WITH 1/2 NS INFUSING AT 30 ML/HR. WILL MONITOR FOR NEEDS.
--- NOTE | 2019-05-07 19:40 | NUR ---
ASSISTED PT TO USE BEDPAN TO HAVE LARGE URINE OUTPUT AND SMALL BM. CLEANSED PT WELL AND PLACED NEW BEDPADS UNDER HER. POSITIONED FOR COMFORT WITH BILATERAL HEELS BRIDGED. WILL CONTINUE TO MONITOR FOR NEEDS.
[2019-05-07 20:00] VITALS: BP 117/45
--- NOTE | 2019-05-07 20:02 | NUR ---
HS MEDICATIONS GIVEN TO INCLUDE NORCO PO PER PRN ORDER, PER REQUEST.
--- NOTE | 2019-05-07 23:03 | NUR ---
ASSISTED PT TO USE THE BEDPAN TO VOID. POSITIONED FOR COMFORT AFTER.
[2019-05-08] VITALS: BP 139/58
[2019-05-08 04:00] VITALS: BP 156/75
[2019-05-08 05:06] LABS: BASOPHILS 0.7 % (0-2); EOSINOPHILS 6.4 % (0-7); HEMATOCRIT 32.6 % (36.0-48.0); HEMOGLOBIN 10.1 g/dL (12-16); IMMATURE GRANULOCYTES 5.2 % (0-5); LYMPHOCYTES 20.6 % (15-50); MCH 29.5 pg (26.0-34.0); MCV 95.3 fL (80.0-100.0); MEAN PLATELET VOLUME 8.9 fL (7.4-10.4); MONOCYTES 12.3 % (2-11); NEUTROPHILS 54.8 % (40-80); PLATELET COUNT 418 10x3/uL (130-400); RBC 3.42 10x6/uL (4.00-5.40); RDW 15.2 % (11.5-14.5); WBC 9.5 10x3/uL (4.8-10.8)
[2019-05-08 05:10] LABS: ANION GAP 9.4 mmol/L (8-16); CALCIUM 9.8 mg/dL (8.5-10.1); CARBON DIOXIDE 33.5 mmol/L (21.0-32.0); CREATININE - SERUM 1.1 mg/dL (0.6-1.3); MAGNESIUM - SERUM 1.6 mg/dL (1.8-2.4); POTASSIUM - SERUM 3.9 mmol/L (3.5-5.1)
--- NOTE | 2019-05-08 08:00 | NUR ---
ASSESSMENT PER FLOW SHEET. PT IS WITHOUT DISTRESS.MONITOR FOR NEEDS.
[2019-05-08 08:05] VITALS: BP 161/76
[2019-05-08 10:55] VITALS: Ht 152.4 cm; Wt 62.6 kg
[2019-05-08 12:42] VITALS: BP 139/62
[2019-05-08 17:16] VITALS: BP 144/69
[2019-05-08 20:00] VITALS: BP 139/70
--- NOTE | 2019-05-08 20:00 | NUR ---
ASSESSSMENT PER FLOWSHEET. DRESSING TO LEFT KNEE INCISION C/D/I. IV PATENT RT ARM OF NS AT 30CC'S/HR. O2 ON 2L/M PER NC. SR UP X2 CALL LIGHT WITHIN REACH DEEPTHI MAT ON WITH ALARMS SET.
--- NOTE | 2019-05-08 22:00 | NUR ---
MEDS GIVEN PER NOV.VOIDS WELL ON BEDPAN.
--- NOTE | 2019-05-09 | NUR ---
EYES CLOSED RESPIRATIONS WITH EASE AND UNLABORED.
[2019-05-09 00:59] VITALS: BP 153/80
--- NOTE | 2019-05-09 02:19 | NUR ---
RESTING QUIETLY DENIES NEEDS.
[2019-05-09 04:50] LABS: BASOPHILS 0.6 % (0-2); HEMATOCRIT 32.1 % (36.0-48.0); HEMOGLOBIN 9.9 g/dL (12-16); IMMATURE GRANULOCYTES 4.3 % (0-5); LYMPHOCYTES 22.1 % (15-50); MCH 29.4 pg (26.0-34.0); MCHC 30.8 g/dL (31.0-37.0); MCV 95.3 fL (80.0-100.0); MEAN PLATELET VOLUME 8.5 fL (7.4-10.4); MONOCYTES 12.8 % (2-11); NEUTROPHILS 56.2 % (40-80); PLATELET COUNT 405 10x3/uL (130-400); RBC 3.37 10x6/uL (4.00-5.40); RDW 15.1 % (11.5-14.5); WBC 9.9 10x3/uL (4.8-10.8)
[2019-05-09 05:06] LABS: ALBUMIN 2.2 g/dL (3.4-5.0); ANION GAP 9.1 mmol/L (8-16); BILIRUBIN - TOTAL 0.31 mg/dL (0.2-1.3); CALCIUM 9.6 mg/dL (8.5-10.1); CARBON DIOXIDE 33.8 mmol/L (21.0-32.0); CREATININE - SERUM 1.1 mg/dL (0.6-1.3); MAGNESIUM - SERUM 1.8 mg/dL (1.8-2.4); POTASSIUM - SERUM 3.9 mmol/L (3.5-5.1); PROTEIN - SERUM 6.9 g/dL (6.4-8.2)
[2019-05-09 05:08] VITALS: BP 147/69
--- NOTE | 2019-05-09 07:44 | NUR ---
ALERT AND ORIENTED. LUNGS CLEAR BILATERALLY IN ALL ROMO. HEART SOUNDS S1 AND S2 HEARD IN ALL ROMO. BOWEL SOUNDS ACTIVE X 4. SKIN INTACT WITHOUT REDNESS. EZEQUIEL WRAP IN PLACE TO LEFT LEG. IV TO RFA PATENT WITHOUT REDNESS. O2 IN PLACE AT 2L. DENIES PAIN. DENIES NEEDS. BED LOW. CALL HARRISON AND PERSONAL ITEMS IN REACH. WILL CONTINUE TO MONITOR.
[2019-05-09 08:56] VITALS: BP 149/77
[2019-05-09 09:12] LABS: ERYTHROCYTE SEDIMENTATION RATE 92 mm/hr (0-30)
--- NOTE | 2019-05-09 10:42 | NUR ---
SITTING IN CHAIR AT BEDSIDE. ATTEMPTED TO ASSIST BACK TO BED PER REQUEST. UNABLE TO ASSIST. WOULD NOT STAND. WEAK. REQUESTED FOR PT TO HELP. PT PAGED PER REQUEST.
--- NOTE | 2019-05-09 10:43 | OP ---
PATIENT NAME: SHEBA CABRAL MEDICAL RECORD: [id number] :[birth year] LOCATION:D.MS [id number] ADMISSION DATE:05/03/19 SURGEON: MADI BROWN MD DATE OF OPERATION: 05/04/2019 PREOPERATIVE DIAGNOSIS: Infected left knee. POSTOPERATIVE DIAGNOSES: Infected left knee, plus complex tear of the posterior horn of the lateral meniscus. PROCEDURES: 1. Arthroscopic partial lateral meniscectomy. 2. Arthroscopic irrigation and debridement of the knee. SURGEON: Madi Brown MD TRACTOR TECHNICIAN: ULISSES Hickey INTRAOPERATIVE COMPLICATIONS: None. SUMMARY OF PATHOLOGIC FINDINGS: The patient did have phlegmon in the suprapopliteal recess. The patient also had a substantial amount of phlegmon in the medial and lateral gutter. Incidentally, she was found to have a complex tear of the posterior horn of the lateral meniscus. Paucity of arthritis was seen in this knee. INDICATIONS: Ms. Sheba Cabral 83-year-old female who recently presented with a right knee infection that has been treated now for several weeks with IV antibiotics and inflammatory markers had been improving and she had been moved to rehab. Unfortunately, she began to become febrile again and had pain in the contralateral knee, the left knee. Upon evaluation of the synovial fluid, although she had 30,000 white blood cell count, Gram stain was reported to show gram-positive cocci. She was thusly scheduled for operative I&D of the contralateral side, i.e., the left knee, that was done today. To-date, no growth has been found on either of the knees; however, her inflammatory markers have recently spiked. OPERATIVE SUMMARY IN DETAIL: After obtaining the appropriate preoperative orthopedic surgery consent as well as anesthetic consultation, evaluation and clearance, the patient was brought to the operating room and placed on the operating table in supine position. After adequate general laryngeal mask airway was administered, tourniquet was placed about the proximal aspect of the patient's left lower extremity. Left lower extremity was then prepped and draped in routine sterile fashion. The leg was elevated and exsanguinated, tourniquet was inflated to 350 mmHg. Inferolateral portal was established, followed by superomedial portal and inferomedial portal. Diagnostic arthroscopy showed substantial amount of phlegmon. The phlegmon was taken down with the large arthroscopic resector, both medial and lateral gutter as well as across the notch. After this had been done, attention was turned to meniscal evaluation. The medial meniscus and medial compartment was in good overall condition without tears or arthritis. Then with the leg in a immacd-gv-tdle position, a large complex tear of the posterior horn of the lateral meniscus was noted. There was no substantial chondromalacia indicating this might be relatively acute; however, it is of note that the synovial fluid was very turbid at the time of initial arthroscopy. For this reason, the arthroscopic resector OPERATIVE REPORT [id number] SHEBA CABRAL was utilized to debride the lateral meniscus back to stable meniscal elements. A total of 12 liters was irrigated through the knee. Arthroscopy portals were then closed by Shanique Davenport with 4-0 Prolene in routine interrupted fashion. Knee was insufflated with 0.25% Marcaine with epinephrine, 30 cc. Sterile dressings were applied. Tourniquet was deflated. The patient was awakened and taken to the recovery room in stable condition. All final needle and sponge counts were correct. TRANSINT:[id number] Voice Confirmation ID: [id number] DOCUMENT ID: [id number] KEVIN HAMMONDS, MADI RAHMAN at 1043 CC: [id number] DICTATION DATE: 05/04/19 1043 AUTOMOBILE ACCESSORIES SALESPERSON: 05/04/19 1341 ADM IN [facility] [id number] [place] [address]
[2019-05-09 12:55] VITALS: BP 118/59
--- NOTE | 2019-05-09 12:55 | NUR ---
RESTING IN BED. SON AT BEDSIDE. DENIES NEEDS. WILL CONTINUE TO MONITOR.
--- NOTE | 2019-05-09 12:59 | MORECARE ---
CASE MANAGEMENT DISCHARGE SUMMARY PATIENT: RAPHAEL CABRAL UNIT: [id number] ADM DATE: 05/03/19 AGE: 83 : 36 SEX: F ROOM/BED: D.2222 AUTHOR: WHIT,DOC PHYSICIAN: REFERRING PHYSICIAN: MADI BROWN MD DATE OF SERVICE: 05/09/19 Discharge Plan Patient Name: RAPHAEL CABRAL Facility: [facility]:[place] : 1935 Planned Disposition: Inpatient Rehab Anticipated Discharge Date: Discharge Date: Expected LOS: Initial Reviewer: [email or web address] Initial Review Date: 05/05/2019 Generated: 05/09/19 1:59 pm Comments DCP- Discharge Planning Updated by [email or web address]: Miley Springer on 05/09/19 11:[address] Spoke with Marilou Carroll about patient requesting a transfer to [facility]. Marilou states that is fine, that she needs to be admitted to an infectious disease doctor (if they do that). I spoke with the patient and her son in the room and they both agree. I spoke with Andrew with the transfer center and facesheet faxed. CM will continue to follow and assist with discharge planning/needs. DCP- Discharge Planning Updated by [id number]: Miley Springer on 05/05/19 6:[address] Patient Name: RAPHAEL CABRAL Admission Status: Elective Accout number: [id number] Admission Date: 05-03-2019 : 1935 Admission Diagnosis: Attending: MADI BROWN Current LOS: 2 Anticipated DC Date: Planned Disposition: Inpatient Rehab Primary Insurance: MEDICARE A & B Discharge Planning Comments: CM met with son to discuss discharge planning/needs. He states that his mother has been in inpatient rehab and would like her to return there when ready to discharge from acute care. From inpatient rehab he would like her to be discharged home. She lives alone, but he states he lives in an apartment below her and he has also arranged for someone to stay with her 29/03 when she is released from rehab. CM will continue to follow and assist with discharge planning/needs. Manager Product: Miley Springer DCPIA - Discharge Planning Initial Assessment Updated by [id number]: Miley Springer on 05/05/19 7:12 am * Is the patient Alert and Oriented? No * How many steps to enter\exit or inside your home? Ramp/0 * PCP Dr. De Leon * Pharmacy [facility] near [facility] * Preadmission Environment Acute Inpatient Rehab * Facility Name [facility] * ADLs Partial Dependent * Partial ADLs (Assistance needed) Ambulation * Equipment Bedside Commode Cane Rolling Walker * List name and contact numbers for known caregivers / representatives who currently or will assist patient after discharge: Catalina Cabral - son [phone] Umesh Henderson - DTR - [phone] * Verbal permission to speak to the caregivers and representatives has been obtained from the patient. Yes * Community resources currently utilized None * Additional services required to return to the preadmission environment? No * Can the patient safely return to the preadmission environment? Yes * Has this patient been hospitalized within the prior 30 days at any hospital? Yes External Providers External Provider: [facility] Next Contact Date: Service Request Date: Service Type: Resolution: Reviewer: Comments: Last DP export: 05/05/19 6:23 a Patient Name: RAPHAEL CABRAL Page 30001 at 1259 All edits/amendments must be made on the electronic document DICTATION DATE: 05/09/19 125 MARKETING MANAGER: HARESH 05/09/19 1259 RPT#: [id number] DC DATE: STATUS: ADM IN [facility] [address] [place] [address] END OF REPORT
--- NOTE | 2019-05-09 15:26 | MORECARE ---
CASE MANAGEMENT DISCHARGE SUMMARY PATIENT: RAPHAEL CABRAL UNIT: [id number] ADM DATE: 05/03/19 AGE: 83 : 36 SEX: F ROOM/BED: D.2222 AUTHOR: WHIT,DOC PHYSICIAN: REFERRING PHYSICIAN: MADI BROWN MD DATE OF SERVICE: 05/09/19 Discharge Plan Patient Name: RAPHAEL CABRAL Facility: [facility]:[place] : 1935 Planned Disposition: Inpatient Rehab Anticipated Discharge Date: Discharge Date: Expected LOS: Initial Reviewer: [email or web address] Initial Review Date: 05/05/2019 Generated: 05/09/19 4:25 pm Comments DCP- Discharge Planning Updated by [email or web address]: Miley Gian on 05/09/19 2:[address] Primary nurse Lindsay, states she received a call from [facility] that the patient has been accepted but their is not an available bed at this time. venue coordinator (Princess) informed. CM will continue to follow and assist with discharge planning/needs. DCP- Discharge Planning Updated by [id number]: Miley Lopezsilvia on 05/09/19 11:[address] Spoke with Marilou Carroll about patient requesting a transfer to [facility]. Marilou states that is fine, that she needs to be admitted to an infectious disease doctor (if they do that). I spoke with the patient and her son in the room and they both agree. I spoke with Andrew with the transfer center and facesheet faxed. CM will continue to follow and assist with discharge planning/needs. DCP- Discharge Planning Updated by [id number]: Miley Lopezsilvia on 05/05/19 6:[address] Patient Name: RAPHAEL CABRAL Admission Status: Elective Accout number: [id number] Admission Date: 05-03-2019 : 1935 Admission Diagnosis: Attending: MADI BROWN Current LOS: 2 Anticipated DC Date: Planned Disposition: Inpatient Rehab Primary Insurance: MEDICARE A & B Discharge Planning Comments: CM met with son to discuss discharge planning/needs. He states that his mother has been in inpatient rehab and would like her to return there when ready to discharge from acute care. From inpatient rehab he would like her to be discharged home. She lives alone, but he states he lives in an apartment below her and he has also arranged for someone to stay with her 29/03 when she is released from rehab. CM will continue to follow and assist with discharge planning/needs. Electrical Engineering Draftsperson: Miley Springer DCPIA - Discharge Planning Initial Assessment Updated by [email or web address]: Miley Springer on 05/05/19 7:12 am * Is the patient Alert and Oriented? No * How many steps to enter\exit or inside your home? Ramp/0 * PCP Dr. De Leon * Pharmacy [facility] near [facility] * Preadmission Environment Acute Inpatient Rehab * Facility Name [facility] * ADLs Partial Dependent * Partial ADLs (Assistance needed) Ambulation * Equipment Bedside Commode Cane Rolling Walker * List name and contact numbers for known caregivers / representatives who currently or will assist patient after discharge: Catalina Cabral - son [phone] Umesh Henderson - DTR - [phone] * Verbal permission to speak to the caregivers and representatives has been obtained from the patient. Yes * Community resources currently utilized None * Additional services required to return to the preadmission environment? No * Can the patient safely return to the preadmission environment? Yes * Has this patient been hospitalized within the prior 30 days at any hospital? Yes Last DP export: 05/09/19 11:59 am Patient Name: RAPHAEL CABRAL Page 86199 at 1526 All edits/amendments must be made on the electronic document DICTATION DATE: 05/09/191524 PARTY PLAN SALES CONSULTANT: HARESH 05/09/19 1525 RPT#: [id number] DC DATE: STATUS: ADM IN [facility] [address] [place] [address] END OF REPORT
--- NOTE | 2019-05-09 15:46 | NUR ---
PATIENT SLEEPING. WILL CONTINUE TO MONITOR.
[2019-05-09 16:45] VITALS: BP 130/57
[2019-05-09 20:00] VITALS: BP 121/56
--- NOTE | 2019-05-09 20:00 | NUR ---
ASSESSMENT PER FLOWSHEET. IV PATENT RT ARM OF NS AT 30CC'S/HR. DRSG TO LEFT KNEE C/D/I DEEPTHI MAT ON SR UP X2 CALL LIGHT WITHIN REACH. O2 ON 2L/M PER NC.
--- NOTE | 2019-05-09 21:00 | NUR ---
MEDS GIVEN PER MAR.
--- NOTE | 2019-05-10 | NUR ---
VOIDS WELL ON BEDPAN.
[2019-05-10 00:41] VITALS: BP 136/64
--- NOTE | 2019-05-10 01:01 | NUR ---
C/O KNEE PAIN NORCO TAB ONE PO GIVEN FOR PAIN CONTROL.
--- NOTE | 2019-05-10 01:40 | NUR ---
[facility] CALLED NO BEDS AVAILABLE AT THIS TIME.
[2019-05-10 04:35] VITALS: BP 120/54
--- NOTE | 2019-05-10 05:00 | NUR ---
RESTING QUIETLY DENIES NEEDS.
[2019-05-10 06:13] LABS: BASOPHILS 0.8 % (0-2); EOSINOPHILS 2.3 % (0-7); HEMATOCRIT 30.1 % (36.0-48.0); HEMOGLOBIN 9.4 g/dL (12-16); IMMATURE GRANULOCYTES 2.8 % (0-5); MCH 29.5 pg (26.0-34.0); MCHC 31.2 g/dL (31.0-37.0); MCV 94.4 fL (80.0-100.0); MEAN PLATELET VOLUME 8.8 fL (7.4-10.4); NEUTROPHILS 56.1 % (40-80); PLATELET COUNT 381 10x3/uL (130-400); RBC 3.19 10x6/uL (4.00-5.40); RDW 15.3 % (11.5-14.5); WBC 10.3 10x3/uL (4.8-10.8)
[2019-05-10 06:33] LABS: ALBUMIN 2.1 g/dL (3.4-5.0); ANION GAP 6.5 mmol/L (8-16); BILIRUBIN - TOTAL 0.27 mg/dL (0.2-1.3); CALCIUM 9.3 mg/dL (8.5-10.1); CARBON DIOXIDE 33.2 mmol/L (21.0-32.0); CREATININE - SERUM 1.1 mg/dL (0.6-1.3); PROTEIN - SERUM 6.6 g/dL (6.4-8.2)
[2019-05-10 06:34] LABS: POTASSIUM - SERUM 4.7 mmol/L (3.5-5.1)
--- NOTE | 2019-05-10 07:28 | NUR ---
RESTING IN BED. LUNGS CLEAR BILATERALLY IN ALL ROMO. HEART SOUNDS S1 AND S2 HEARD IN ALL ROMO. BOWEL SOUNDS ACTIVE X 4. SKIN INTACT WITHOUT REDNESS. IV TO RFA PATENT WITHOUT REDNESS. DENIES PAIN. DENIES NEEDS. WAITING PLACEMENT AT [facility]. BED LOW. CALL HARRISON AND PERSONAL ITEMS IN REACH. WILL CONTINUE TO MONITOR.
[2019-05-10 07:59] VITALS: BP 159/84
--- NOTE | 2019-05-10 10:48 | NUR ---
DRSG AND SUTURES X 3 REMOVED FROM LEFT KNEE WITHOUT DIFFICULTY PER ORDER.
[2019-05-10 11:55] VITALS: BP 162/77
[2019-05-10 14:09] LABS: ANA REFLEX - DIRECT Negative (Negative)
--- NOTE | 2019-05-10 14:17 | NUR ---
PATIENT SLEEPING. WILL CONTINUE TO MONITOR.
[2019-05-10 16:01] VITALS: BP 125/65
--- NOTE | 2019-05-10 17:13 | NUR ---
IV INFILTRATED TO RIGHT FOREARM. RESITED TO LEFT WRIST AFTER 1 ATTEMPT. WARM COMPRESS PROVIDED.
--- NOTE | 2019-05-10 20:00 | NUR ---
ASSESSMENT PER FLOWSHEET. IV PATENT LEFT WRIST OF 1/2NS AT 30CC'S/HR SITE CLEAR. INCISION TO LEFT KNEE C/D/I.SUTURES OUT AND TO AIR.O2 AT 2L/M PER NC. PT STILL WAITING FOR BED AT [facility]. REC'D A CALL FROM TIA RUEDA. STATING NO BEDS AVAILABLE AT [facility]. DEEPTHI MAT TO BED ALARMS SET. SR UP X2 CALL LIGHT WITHIN REACH.
--- NOTE | 2019-05-10 21:00 | NUR ---
MEDS GIVEN [facility].
[2019-05-10 21:09] VITALS: BP 121/64
--- NOTE | 2019-05-10 23:00 | NUR ---
REC'D CALL FROM TIA RUEDA STATING STILL NO BEDS AVAILABLE AT [facility].
--- NOTE | 2019-05-11 | NUR ---
EYES CLOSED RESPIRATIONS WITH EASE AND UNLABORED.
[2019-05-11 01:06] VITALS: BP 125/71
--- NOTE | 2019-05-11 01:37 | NUR ---
TIA RUEDA CALLS AGAIN STATING STILL NO BEDS AVAILABLE AT [facility].THIS IS 3RD CALL.
[2019-05-11 05:37] VITALS: BP 126/64
--- NOTE | 2019-05-11 06:23 | NUR ---
4TH CALL FROM TIA RUEDA STATING STILL NO BEDS AVAILABLE AT [facility]. MEDS GIVEN PER NOV.
[2019-05-11 06:45] LABS: EOSINOPHILS 3.2 % (0-7); HEMATOCRIT 29.6 % (36.0-48.0); HEMOGLOBIN 9.2 g/dL (12-16); LYMPHOCYTES 16.6 % (15-50); MCH 29.3 pg (26.0-34.0); MCHC 31.1 g/dL (31.0-37.0); MCV 94.3 fL (80.0-100.0); MEAN PLATELET VOLUME 8.7 fL (7.4-10.4); MONOCYTES 18.4 % (2-11); NEUTROPHILS 57.8 % (40-80); PLATELET COUNT 366 10x3/uL (130-400); RBC 3.14 10x6/uL (4.00-5.40); RDW 15.2 % (11.5-14.5); WBC 8.6 10x3/uL (4.8-10.8)
[2019-05-11 06:58] LABS: ALBUMIN 2.2 g/dL (3.4-5.0); ANION GAP 9.3 mmol/L (8-16); BILIRUBIN - TOTAL 0.31 mg/dL (0.2-1.3); CALCIUM 8.8 mg/dL (8.5-10.1); CARBON DIOXIDE 30.9 mmol/L (21.0-32.0); MAGNESIUM - SERUM 1.8 mg/dL (1.8-2.4); POTASSIUM - SERUM 4.2 mmol/L (3.5-5.1); PROTEIN - SERUM 5.9 g/dL (6.4-8.2)
--- NOTE | 2019-05-11 08:00 | NUR ---
PATIENT AWAKE AT THIS TIME. NO NEEDS. CL IN REACH. BED ALARM ON. WCTM
[2019-05-11 08:50] VITALS: BP 159/68
[2019-05-11 10:16] LABS: ERYTHROCYTE SEDIMENTATION RATE 115 mm/hr (0-30)
--- NOTE | 2019-05-11 11:24 | NUR ---
FAMILY IN ROOM. IV PUMP SAYING "AIR IN LINE" IV LINE CLEARED. CL IN REACH. WCTM
[2019-05-11 12:14] VITALS: BP 132/59
--- NOTE | 2019-05-11 13:42 | NUR ---
NUTRITION F/U CHART REVIEWED, PT VISIT. REG DIET BUT POOR PO INTAKE RECENT MEALS. PT STATES NOTHING TASTES GOOD. ENCOURAGED PT TO TRY TO EAT A LITTLE. PT VOICED UNDERSTANDING. RD FOLLOWING
--- NOTE | 2019-05-11 15:17 | NUR ---
PATIENT IV BEEPING. ASKED IF IT WAS OKAY IF SHE PRESSED HER CALL LIGHT WHEN IT STARTED BEEPING. I SAID THAT WAS FINE. CL IN REACH. PHONE IN REACH. MOISESTM
--- NOTE | 2019-05-11 15:32 | MORECARE ---
CASE MANAGEMENT DISCHARGE SUMMARY PATIENT: RAPHAEL CABARL UNIT: [id number] ADM DATE: 05/03/19 AGE: 83 : 36 SEX: F ROOM/BED: D.2222 AUTHOR: WHIT,DOC PHYSICIAN: REFERRING PHYSICIAN: MADI BROWN MD DATE OF SERVICE: 05/11/19 Discharge Plan Patient Name: RAPHAEL CABRAL Facility: [facility]:[place] : 1935 Planned Disposition: Inpatient Rehab Anticipated Discharge Date: Discharge Date: Expected LOS: Initial Reviewer: [email or web address] Initial Review Date: 05/05/2019 Generated: 05/11/19 4:32 pm Comments DCP- Discharge Planning Updated by [email or web address]: Miley Springer on 05/11/19 2:[address] Lisa from inpatient rehab states they can accept patient today. I have messaged Marilou Hodges to inform her. I called the office as well and left a message to call me. I called patient's son per her request and left a voice mail that she will be discharged to inpatient rehab. Patient is in agreement to going today. CM will continue to follow and assist with discharge planning/needs. DCP- Discharge Planning Updated by [id number]: Miley Springer on 05/09/19 2:[address] Primary nurse Lindsay, states she received a call from [facility] that the patient has been accepted but their is not an available bed at this time. life skills coordinator volunteer (Princess) informed. CM will continue to follow and assist with discharge planning/needs. DCP- Discharge Planning Updated by [email or web address]: Miley Springer on 05/09/19 11:[address] Spoke with Marilou Hodges about patient requesting a transfer to [facility]. Marilou states that is fine, that she needs to be admitted to an infectious disease doctor (if they do that). I spoke with the patient and her son in the room and they both agree. I spoke with Andrew with the transfer center and facesheet faxed. CM will continue to follow and assist with discharge planning/needs. DCP- Discharge Planning Updated by [id number]: Miley Sprinegr on 05/05/19 6:[address] Patient Name: RAPHAEL CABRAL Admission Status: Elective Accout number: [id number] Admission Date: 05-03-2019 : 1935 Admission Diagnosis: Attending: MADI BROWN Current LOS: 2 Anticipated DC Date: Planned Disposition: Inpatient Rehab Primary Insurance: MEDICARE A & B Discharge Planning Comments: CM met with son to discuss discharge planning/needs. He states that his mother has been in inpatient rehab and would like her to return there when ready to discharge from acute care. From inpatient rehab he would like her to be discharged home. She lives alone, but he states he lives in an apartment below her and he has also arranged for someone to stay with her 29/03 when she is released from rehab. CM will continue to follow and assist with discharge planning/needs. Rolfer: Mliey Springer [facility] - Discharge Planning Initial Assessment Updated by [id number]: Miley Springer on 05/05/19 7:12 am * Is the patient Alert and Oriented? No * How many steps to enter\exit or inside your home? Ramp/0 * PCP Dr. De Leon * Pharmacy [facility] near [facility] * Preadmission Environment Acute Inpatient Rehab * Facility Name [facility] * ADLs Partial Dependent * Partial ADLs (Assistance needed) Ambulation * Equipment Bedside Commode Cane Rolling Walker * List name and contact numbers for known caregivers / representatives who currently or will assist patient after discharge: Catalina Cabral - son [phone] Umesh Henderson - DTR - [phone] * Verbal permission to speak to the caregivers and representatives has been obtained from the patient. Yes * Community resources currently utilized None * Additional services required to return to the preadmission environment? No * Can the patient safely return to the preadmission environment? Yes * Has this patient been hospitalized within the prior 30 days at any hospital? Yes Coverage Notice Reviewer: [id number] - Miley Springer Notice Issued Date-Time: 05/11/2019 14:45 Notice Type: IM Discharge Notice Notice Delivered To: Patient Relationship to Patient: Self Prune Washer Name: Delivery Method: HAND - Hand Delivered Leeanne Days: Prior Verbal Notification: Recipient Understood Notice: Yes Recipient Signature: Yes Med Rec Note Co-signed by Attending: Coverage Notice Comment: IMM explained, signed, given, copy placed in MR Last DP export: 9/3/19 2:26 pm Patient Name: RAPHAEL CABRAL Page [id number] at 1532 All edits/amendments must be made on the electronic document DICTATION DATE: 05/11/191531 CONTINUOUS PILLOWCASE CUTTER: HARESH 05/11/191531 RPT#: [id number] DC DATE: STATUS: ADM IN [facility] [address] [place] [address] END OF REPORT
[2019-05-11] MEDS ORDERED: MERREM 1 GM/NS 11 G1 IV (15:39)
[2019-05-11 15:53] VITALS: BP 135/62
--- NOTE | 2019-05-11 16:28 | NUR ---
Rehab Note- Acute Inpatient Rehab prescreen order received. The patient was recently in our acute inpatient rehab unit and did well. Will accept back to our acute inpatient rehab unit when ready for discharge from the acute hospital- spoke with NISHI Trent. Thank you for this referral! Lisa Buitrago RN Clinical Liaison, [facility] Rehab
--- NOTE | 2019-05-11 17:50 | NUR ---
CALLED REPORT DOWN TO LEONORA IN REHAB.
--- NOTE | 2019-05-15 12:27 | MORECARE ---
CASE MANAGEMENT DISCHARGE SUMMARY PATIENT: RAPHAEL CABRAL UNIT: [id number] ADM DATE: 05/03/19 AGE: 83 : 36 SEX: F ROOM/BED: D.2222 AUTHOR: WHIT,DOC PHYSICIAN: REFERRING PHYSICIAN: MADI BROWN MD DATE OF SERVICE: 05/15/19 Discharge Plan Patient Name: RAPHAEL CABRAL Facility: [facility]:[place] : 1935 Planned Disposition: Inpatient Rehab Anticipated Discharge Date: Discharge Date: 05/11/2019 Expected LOS: 0 Initial Reviewer: [email or web address] Initial Review Date: 05/05/2019 Generated: 05/15/19 1:27 pm Comments DCP- Discharge Planning Updated by [id number]: Miley Springer on 05/11/19 2:[address] Lisa from inpatient rehab states they can accept patient today. I have messaged Marilou Hodges to inform her. I called the office as well and left a message to call me. I called patient's son per her request and left a voice mail that she will be discharged to inpatient rehab. Patient is in agreement to going today. CM will continue to follow and assist with discharge planning/needs. DCP- Discharge Planning Updated by [id number]: Miley Springer on 05/09/19 2:[address] Primary nurse Lindsay, states she received a call from [facility] that the patient has been accepted but their is not an available bed at this time. recycle coordinator (Princess) informed. CM will continue to follow and assist with discharge planning/needs. DCP- Discharge Planning Updated by [email or web address]: Miley Springer on 05/09/19 11:[address] Spoke with Marilou Hodges about patient requesting a transfer to [facility]. Marilou states that is fine, that she needs to be admitted to an infectious disease doctor (if they do that). I spoke with the patient and her son in the room and they both agree. I spoke with Andrew with the transfer center and facesheet faxed. CM will continue to follow and assist with discharge planning/needs. DCP- Discharge Planning Updated by [id number]: Miley Springer on 05/05/19 6:[address] Patient Name: RAPHAEL CABRAL Admission Status: Elective Accout number: [id number] Admission Date: 05-03-2019 : 1935 Admission Diagnosis: Attending: MADI BROWN Current LOS: 2 Anticipated DC Date: Planned Disposition: Inpatient Rehab Primary Insurance: MEDICARE A & B Discharge Planning Comments: CM met with son to discuss discharge planning/needs. He states that his mother has been in inpatient rehab and would like her to return there when ready to discharge from acute care. From inpatient rehab he would like her to be discharged home. She lives alone, but he states he lives in an apartment below her and he has also arranged for someone to stay with her 29/03 when she is released from rehab. CM will continue to follow and assist with discharge planning/needs. Telephone Information Clerk: [facility] Springer [facility] Initial Assessment Updated by [id number]: Miley Springer on 05/05/19 7:12 am * Is the patient Alert and Oriented? No * How many steps to enter\exit or inside your home? Ramp/0 * PCP Dr. De Leon * Pharmacy [facility] near [facility] * Preadmission Environment Acute Inpatient Rehab * Facility Name [facility] * ADLs Partial Dependent * Partial ADLs (Assistance needed) Ambulation * Equipment Bedside Commode Cane Rolling Walker * List name and contact numbers for known caregivers / representatives who currently or will assist patient after discharge: Catalina Cabral - son [phone] Umesh Henderson - DTR - [phone] * Verbal permission to speak to the caregivers and representatives has been obtained from the patient. Yes * Community resources currently utilized None * Additional services required to return to the preadmission environment? No * Can the patient safely return to the preadmission environment? Yes * Has this patient been hospitalized within the prior 30 days at any hospital? Yes Coverage Notice Reviewer: [id number] - Miley Springer Notice Issued Date-Time: 05/11/2019 14:45 Notice Type: IM Discharge Notice Notice Delivered To: Patient Relationship to Patient: Self Nurse Ob Name: Delivery Method: HAND - Hand Delivered Leeanne Days: Prior Verbal Notification: Recipient Understood Notice: Yes Recipient Signature: Yes Med Rec Note Co-signed by Attending: Coverage Notice Comment: IMM explained, signed, given, copy placed in MR Last DP export: 05/11/19 2:32 pm Patient Name: RAPHAEL CABRAL Page [phone] at 1227 All edits/amendments must be made on the electronic document DICTATION DATE: 05/15/19 1227 PROTECTOR PLATE ATTACHER: HARESH 05/15/19 1227 RPT#: [id number] DC DATE:05/11/19 STATUS: DIS IN [facility] [address] [place] [address] END OF REPORT
== END 2019-05-11 18:13 | DRG 485 ==
LOC: D.MS 13:48
PROVIDERS: Family Medicine; Internal Medicine Nephrology; ADMIT Orthopaedic Surgery; ATTEND Orthopaedic Surgery
PROC: 0SBD4ZZ Excision of Left Knee Joint, Percutaneous Endoscopic Approach (ICD-10-PCS; principal; 2019-05-04 10:00)
PROC: 3E1U38Z Irrigation of Joints using Irrigating Substance, Percutaneous Approach (ICD-10-PCS; 2019-05-04 10:00)
DX: M00.862 Arthritis due to other bacteria, left knee (principal); A41.9 Sepsis, unspecified organism; J98.11 Atelectasis; G93.49 Other encephalopathy; S83.282A Other tear of lateral meniscus, current injury, left knee, initial encounter; I10 Essential (primary) hypertension

== ENCOUNTER 2019-05-11 16:45 | Inpatient (IN) | payer MEDICARE, OTHER ==
[~2019-05-11] VITALS: Ht 167.6 cm; Wt 63.5 kg
[~2019-05-11 16:45] MED LIST changes: +MERREM 1 GM/NS 11 G1 IV
--- NOTE | 2019-05-11 19:00 | NUR ---
RECEIVED PT FROM ACUTE CARE UNIT. INTRODUCED SELFT TO PT. UPDATED INFORMATION BOARD. PT SITTING UP IN BED ALERT AND ORIENTED X4. ORIENTED TO ROOM, BATHROOM, AND FUNCTIONS OF REMOTE. LEFT WRIST IV DRESSING C/D/I. DENIES ANY NEEDS OR PAIN. CALL LIGHT AND WATER WITHIN REACH, FALL PRECAUTIONS IN PLACE.
[2019-05-11 20:01] VITALS: BP 123/75
[2019-05-11 22:48] VITALS: BP 123/75; BMI 22.6
--- NOTE | 2019-05-11 23:48 | NUR ---
LYING IN BED SUPINE EYES CLOSED RESTING. RR EVEN AND UNLABORED. WILL CONTINUE TO MONITOR
--- NOTE | 2019-05-12 02:45 | NUR ---
LYING IN BED SUPINE EYES CLOSED RESTING QUIETLY.
--- NOTE | 2019-05-12 06:49 | NUR ---
LYING IN BED EYES CLOSED RESTING QUIETLY. RR EVEN AND UNLABORED
[2019-05-12 07:07] LABS: BASOPHILS 1.1 % (0-2); HEMATOCRIT 27.7 % (36.0-48.0); HEMOGLOBIN 8.7 g/dL (12-16); IMMATURE GRANULOCYTES 2.3 % (0-5); LYMPHOCYTES 18.4 % (15-50); MCH 29.4 pg (26.0-34.0); MCHC 31.4 g/dL (31.0-37.0); MCV 93.6 fL (80.0-100.0); MEAN PLATELET VOLUME 8.6 fL (7.4-10.4); MONOCYTES 17.9 % (2-11); NEUTROPHILS 58.3 % (40-80); RBC 2.96 10x6/uL (4.00-5.40); RDW 14.9 % (11.5-14.5); WBC 9.1 10x3/uL (4.8-10.8)
[2019-05-12 07:10] LABS: PLATELET COUNT 287 10x3/uL (130-400)
[2019-05-12 07:28] LABS: ANION GAP 9.9 mmol/L (8-16); CALCIUM 9.4 mg/dL (8.5-10.1); POTASSIUM - SERUM 3.9 mmol/L (3.5-5.1)
[2019-05-12 08:00] VITALS: BP 142/113
--- NOTE | 2019-05-12 10:48 | NUR ---
PATIENT ADMITTED TO REHAB FROM ACUTE FLOOR.DR. OBRIEN IS HER PCP. DME AT HOME IS A BEDSIDE COMMODE, CANE AND A WALKER. DISCHARGE PLANS ARE FOR PATIENT TO RETURN HOME WITH 24/7 CARE THAT HER SON HAS ARRANGED. WILL CONTINUE TO FOLLOW WITH PATIENT.
[2019-05-12 12:11] VITALS: Ht 167.6 cm; Wt 63.5 kg
--- NOTE | 2019-05-12 14:21 | NUR ---
LAYING IN BED RESTING QUIETLY. NO S/S PAIN OR DISTRESS. RESP EFFORT NON LABORED. CALL LIGHT IN REACH
--- NOTE | 2019-05-12 19:30 | NUR ---
PT IS RESTING IN BED WITH EYES CLOSED. AWOKE EASILY TO VERBAL STIMULI. DENIES ACUTE PAIN OR DISCOMFORT AT THIS TIME. PT IS ALERT AND ORIENTED X 3. O2 IS ON @ 2LPM PER NC. NO SOB NOTED. IV IRON INFUSING SLOWLY TO LEFT WRIST IV SITE. NO REDNESS OR EDEMA NOTED. SR'S ARE UP X 3 IN BED. CALL LIGHT AND BEDSIDE TABLE ARE WITHIN EASY REACH.
[2019-05-12 19:58] VITALS: BP 111/91
--- NOTE | 2019-05-12 21:36 | NUR ---
PT IS RESTING IN BED WATCHING TV. NO NEEDS VOICED.
--- NOTE | 2019-05-13 00:58 | NUR ---
RESTING IN BED WITH EYES CLOSED.
--- NOTE | 2019-05-13 04:17 | NUR ---
RESTING IN BED WITH EYES CLOSED.
[2019-05-13 08:00] VITALS: BP 127/63
--- NOTE | 2019-05-13 08:00 | NUR ---
PATIENT SITTING UP IN BED TO EAT BREAKFAST. ALERT/ORIENT. CALL LIGHT WITHIN REACH. VOICES NO NEEDS AT THIS TIME. WILL CONTINUE WITH PLAN OF CARE
--- NOTE | 2019-05-13 10:10 | NUR ---
OCCUPATIONAL THERAPIST IN PATIENTS ROOM. HELPING PATIENT WASH UP AND CHANGE CLOTHES.
--- NOTE | 2019-05-13 13:54 | NUR ---
PATIENT IS A MIN ASST OF ONE FROM BED TO WHEELCHAIR AND WHEELCHAIR TO TOILET. PATIENT WEARS BRIEFS DUE TO STRESS INC.
--- NOTE | 2019-05-13 14:18 | NUR ---
I have reviewed this patient and I concur with the Shift Assessment completed by the Licensed Practical Nurse today this shift.
--- NOTE | 2019-05-13 17:10 | NUR ---
LEFT WRIST SALINE LOCK PATENT. IV ANTIBIOTIC RUNNING
--- NOTE | 2019-05-13 19:35 | NUR ---
PT IS RESTING IN BED WITH BLANKET PULLED UP OVER HER BED. NO DISTRESS NOTED. DID NOT AWAKE PT AT THIS TIME TO ASSESS HER.
[2019-05-13 19:49] VITALS: BP 114/81
--- NOTE | 2019-05-13 22:56 | NUR ---
RESTING IN BED WITH EYES CLOSED.
--- NOTE | 2019-05-14 00:37 | NUR ---
I have reviewed this patient and I concur with the Shift Assessment completed by the Licensed Practical Nurse today this shift.
--- NOTE | 2019-05-14 04:29 | NUR ---
RESTING IN BED WITH EYES CLOSED. ASSISTED TO BATHROOM PRN.
[2019-05-14 08:00] VITALS: BP 139/69
--- NOTE | 2019-05-14 08:20 | NUR ---
PATIENT IS ALERT/ORIET. CALL LIGHT WITHIN REACH. VOICES NO NEEDS AT THIS TIME. WILL CONTINUE WITH PLAN OF CARE
--- NOTE | 2019-05-14 10:36 | NUR ---
PATIENT IS A STAND BY ASST FROM BED TO WHEELCHAIR. UP AT SINK TO WASH FACE AND BRUSH TEETH. PATIENT ABLE TO DO OWN ORAL CARE.
--- NOTE | 2019-05-14 15:31 | NUR ---
PATIENT C/O NECK AND SHOULDER PAIN. PRN FLEXERIL GIVEN
--- NOTE | 2019-05-14 16:15 | NUR ---
I have reviewed this patient and I concur with the Shift Assessment completed by the Licensed Practical Nurse today this shift.
--- NOTE | 2019-05-14 19:09 | NUR ---
SALINE LOCK REPORTED TO BE GETTING VERY SLUGGISH. SITE NOTED TO BE SLIGHTLY REDDENED AROUND INSERTION SITE. IV DC'D WITH CATH INTACT. BANDAID APPLIED. IV RESITED TO LEFT HAND WITH 22G CATH USING STERILE TECHNIQUE. SECURED WITH CLEAR TAPE AND OPSITE.
--- NOTE | 2019-05-14 21:20 | NUR ---
PT RESTING IN BED WITH EYES CLOSED.
--- NOTE | 2019-05-14 23:52 | NUR ---
RESTING IN BED WITH EYES CLOSED.
--- NOTE | 2019-05-15 03:15 | NUR ---
I have reviewed this patient and I concur with the Shift Assessment completed by the Licensed Practical Nurse today this shift.
--- NOTE | 2019-05-15 05:40 | NUR ---
PT RESTING IN BED WITH EYES CLOSED. NO ACUTE DISTRESS NOTED.
[2019-05-15 06:46] LABS: BASOPHILS 1.1 % (0-2); EOSINOPHILS 2.7 % (0-7); HEMATOCRIT 30.3 % (36.0-48.0); HEMOGLOBIN 9.5 g/dL (12-16); IMMATURE GRANULOCYTES 2.4 % (0-5); LYMPHOCYTES 17.7 % (15-50); MCH 29.5 pg (26.0-34.0); MCHC 31.4 g/dL (31.0-37.0); MCV 94.1 fL (80.0-100.0); MEAN PLATELET VOLUME 8.8 fL (7.4-10.4); MONOCYTES 16.4 % (2-11); NEUTROPHILS 59.7 % (40-80); PLATELET COUNT 337 10x3/uL (130-400); RBC 3.22 10x6/uL (4.00-5.40); RDW 15.1 % (11.5-14.5); WBC 9.3 10x3/uL (4.8-10.8)
[2019-05-15 07:06] LABS: CALCIUM 9.1 mg/dL (8.5-10.1); CARBON DIOXIDE 30.9 mmol/L (21.0-32.0); CREATININE - SERUM 0.9 mg/dL (0.6-1.3); POTASSIUM - SERUM 3.9 mmol/L (3.5-5.1)
[2019-05-15 07:47] VITALS: BP 150/66
--- NOTE | 2019-05-15 14:32 | NUR ---
RESTING QUIETLY IN BED. EYES CLOSED. CALL LIGHT IN REACH. BED IN LOWEST POSITION.
--- NOTE | 2019-05-15 20:00 | NUR ---
PATIENT RECEIVED SITTING UP IN BED. VITAL SIGNS & ASSESSMENT DONE. IV PATENT WITH FE TRANSFUSING. NO C/O PAIN OR DISTRESS. BED LOW. CALL LIGHT WITHIN REACH. WILL CONTINUE TO MONITOR. .
[2019-05-15 21:20] VITALS: BP 125/61
[2019-05-15 21:26] VITALS: BP 125/61
--- NOTE | 2019-05-16 02:43 | NUR ---
I have reviewed this patient and I concur with the Shift Assessment completed by the Licensed Practical Nurse today this shift.
[2019-05-16 07:51] VITALS: BP 155/80
--- NOTE | 2019-05-16 14:04 | NUR ---
Nutrition Follow-up: Diet: Regular PO intake: 50% averages x 9 meals, reports poor appetite and taste alterations from medications. Does not want nutrition supplements. Labs, meds, and skin assessment reviwed Wt: 140# (05/12/19) +BM RD Following
[2019-05-16 19:00] VITALS: BP 126/63
--- NOTE | 2019-05-16 19:31 | NUR ---
GREETED PATIENT AND INTRODUCED MYSELF HER NURSE. PATIENT IS LAYING IN BED IN SUPINE POSITION WITH BILATERAL LEGS ELEVATED ON PILLOWS. PT. STATES THAT SHE IS CURRENTLY NOT IN PAIN. DENIES ANY FURTHER NEEDS AT THIS TIME. CALL LIGHT IN REACH.
--- NOTE | 2019-05-17 02:12 | NUR ---
PATIENT RESTING QUIETLY WITH EYES CLOSED. O2 AT 2L IN USE VIA NC. RESPIRATIONS EVEN. NO S/S OF DISTRESS. SR UP X 2. BED IN LOWEST POSITION. CALL LIGHT IN REACH.
[2019-05-17 07:11] LABS: ANION GAP 9.2 mmol/L (8-16); CALCIUM 9.1 mg/dL (8.5-10.1); CARBON DIOXIDE 29.8 mmol/L (21.0-32.0); CREATININE - SERUM 0.9 mg/dL (0.6-1.3)
[2019-05-17 07:44] LABS: EOSINOPHILS 3.5 % (0-7); HEMATOCRIT 30.6 % (36.0-48.0); HEMOGLOBIN 9.6 g/dL (12-16); IMMATURE GRANULOCYTES 3.2 % (0-5); LYMPHOCYTES 22.7 % (15-50); MCH 29.5 pg (26.0-34.0); MCHC 31.4 g/dL (31.0-37.0); MCV 94.2 fL (80.0-100.0); MONOCYTES 15.6 % (2-11); PLATELET COUNT 349 10x3/uL (130-400); RBC 3.25 10x6/uL (4.00-5.40); RDW 15.3 % (11.5-14.5); WBC 8.3 10x3/uL (4.8-10.8)
--- NOTE | 2019-05-17 08:00 | NUR ---
SHIFT ASSMT COMLETED.DENIES NEEDS
[2019-05-17 08:01] VITALS: BP 156/73
--- NOTE | 2019-05-17 14:39 | RHP ---
PATIENT: RAPHAEL CABRAL MEDICAL RECORD: [id number] ACCOUNT: [id number] LOCATION:[facility]11[facility] : [birth year] ADMISSION DATE: 05/11/19 REHABILITATION HISTORY AND PHYSICAL EXAMINATION POST ADMISSION PHYSICIAN EXAMINATION POST ADMISSION PHYSICAL EXAMINATION AND HISTORY AND PHYSICAL DATE OF ADMISSION: 05/11/2019 ADMITTING DIAGNOSIS: Acute encephalopathy. HISTORY OF PRESENT ILLNESS: The patient is an 83-year-old female patient, who was recently in the acute inpatient rehab, was admitted to the [facility] hospital with complaints of bilateral knee pain. She underwent a right total knee arthroscopic irrigation and debridement on April 21. Fluid was aspirated. Cultures showed no growth from the Emergency Room; however, white count in synovial fluid was elevated. She improved with IV antibiotics and was transferred to rehab. She continued on vancomycin. She kept complaining of bilateral knee pain and was transferred back to [facility]. White blood cell urinalysis done after this showed 30,000 white count with 84% neutrophils. She was restarted on Zosyn. She was admitted back to the [facility] hospital. On April 29, she had a repeat arthroscopic irrigation and debridement. X-ray showed tricompartmental osteoarthritis, effusion, and lateral meniscal chondrocalcinosis. She has slowly progressed with therapy. She is currently receiving IV therapy. 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 She is on supplemental O2. She has got acute confusion, deconditioning, debility, impaired mobility, gait disturbance, high fall risk, self-care deficits. These are all barriers to her discharge. She lives at home alone with her son living next door. She was independent with mobility and was moderately independent with ADLs. Currently set up for mod assist with her ADLs and mod assist with her mobility. She and her family would like for her to return home at her prior level of functioning or better if possible. Comorbidities include septic right knee, arthroscopic I&D, tricompartmental osteoarthritis, atelectasis, acute encephalopathy, hypertension, normocytic anemia, acute renal failure, osteoarthritis, and bilateral knee pain. PAST MEDICAL HISTORY: Significant for CVA in the past, aneurysm. She has got essential tremor. She has got parathyroid problems, hypertension, arthritis, chronic back pain, osteoporosis. PAST SURGICAL HISTORY: Includes hysterectomy and I&D. CURRENT MEDICATIONS: Include a sodium ferric complex. She is on Floranex daily, propranolol 20 mg daily, potassium 20 mEq daily, polyethylene glycol 17 grams in 8 ounces of water daily, Procardia 30 mg daily, Lovenox 40 mg subcutaneous daily, Cymbalta 60 mg daily, aspirin chewable 81 mg daily, Protonix 40 mg daily, Zocor 40 mg at bedtime. She is on Zofran ODT as needed. She is on Merrem 1 g every 12 hours, Bingham 1 tablet every 4-6 hours of the , and Flexeril 10 mg b.i.d. HABITS: No current alcohol or tobacco use. FAMILY HISTORY: Noncontributory. HISTORY AND PHYSICAL [id number] RAPHAEL CABRAL SOCIAL HISTORY: The patient hopes to return back home and get back to her prior level of functioning. REVIEW OF SYSTEMS: GENERAL: Does complain of weakness and fatigue. HEENT: Denies cold, cough, or congestion. CARDIOVASCULAR: Denies any chest pain. PHYSICAL EXAMINATION: VITAL SIGNS: Stable, afebrile. GENERAL: An elderly female, in no acute distress upon exam. HEENT: Normocephalic and atraumatic. Mucosa moist. NECK: Supple, with no lymphadenopathy. LUNGS: Clear at this time with no wheeze, rhonchi or rales. HEART: Regular rate and rhythm. No murmurs, rubs or gallops. ABDOMEN: Soft, benign, and nondistended. Positive bowel sounds times 4. EXTREMITIES: She does have a noted swelling of both knees, but normal for postop. She does have some tenderness with passive motion and palpation. NEUROLOGIC: She has got 3/5 muscular strength in her lower extremities. LABORATORY DATA: White count is 9.1, H&H 8.7 and 27.7, platelet count is 287. Sodium 137, potassium 3.9, BUN and creatinine of 13 and 1.0, and blood sugar is noted to be 103. ASSESSMENT: This is an 83-year-old female patient admitted to the rehab with a working diagnosis of acute encephalopathy and bilateral septic knees. The patient has potential to make improvement. We will institute the following multidisciplinary therapies including, but not limited to, physical, occupational, respiratory, speech, nutritional services, prosthetics, and orthotics. Given her complex medical condition and risks for more complications, rehabilitation services cannot be provided at a lower level of care such as a skilled nurse facility. PLAN: 1. Admit to [facility] for an inpatient therapy to include the following disciplines; A. Physical therapy to improve gait, all transfer skills, and bed mobility to modified independent level. B. Occupational therapy to modified independent level. C. Case management to assist with discharge planning and placement options. D. Nutrition to assist with nutritional needs. E. Rehabilitation nursing to assist in monitoring the patient's underlying medical conditions and to assist with any type of bowel or bladder management. 2. The patient's current medications and medical care will be continued. 3. The patient will be placed on standard fall precautions. 4. We will watch for any signs of infection in her knees. 5. We will see her again in the a.m. TRANSINT:[id number] Voice Confirmation ID: [id number] DOCUMENT ID: [id number] CLAYTON notes whether there has been none or any medical/functional change since admission: - No change since prescreen. HISTORY AND PHYSICAL [id number] RAPHAEL CABRAL attests patient continues to be appropriate for IRF: - Continues to be appropriate. MORGAN HERNANDEZ MD at 1439 CC: [id number] DICTATION DATE: 05/12/19 09 CAR DUMPER: 05/12/19 1053 ADM IN [facility] [address] [place] [address]
[2019-05-17 19:15] VITALS: BP 115/46
--- NOTE | 2019-05-17 19:22 | NUR ---
GREETED PATIENT AND INTRODUCED MYSELF. PATIENT IS LAYING IN BED RESTING QUIETLY. RESPIRATIONS EVEN. NO S/S OF DISTRESS. CALL LIGHT IN REACH.
--- NOTE | 2019-05-18 00:42 | NUR ---
DC PERIPHERAL IV IN LEFT WRIST. NEW PERIPHERAL IV STARTED ON RIGHT FOREARM. 22 GAUGE. SUCCESS FIRST ATTEMPT.
--- NOTE | 2019-05-18 01:35 | NUR ---
PATIENT RESTING QUIETLY WITH EYES CLOSED LAYING IN SUPINE POSITION. RESPIRATIONS EVEN. NO S/S OF DISTRESS. SR UP X 2. BED IN LOWEST POSITION. CALL LIGHT IN REACH.
[2019-05-18 08:00] VITALS: BP 146/82
--- NOTE | 2019-05-18 08:00 | NUR ---
SHIFT ASSMT COMPLETED.
--- NOTE | 2019-05-18 16:00 | NUR ---
PICC LINE PLACED TO LUE/VASCULAR NURSE.
--- NOTE | 2019-05-18 19:40 | NUR ---
GREETED PATIENT AND INTRODUCED MYSELF HER NURSE. PATIENT IS LAYING IN BED WATCHING TV. DENIES ANY NEEDS AT THIS TIME. CALL LIGHT IN REACH
[2019-05-18 20:00] VITALS: BP 142/64
--- NOTE | 2019-05-19 01:45 | NUR ---
DC'D PERIPHERAL IV IN RIGHT FOREARM. TIP INTACT. PATIENT TOLERATED PROCEDURE.
[2019-05-19 08:00] VITALS: BP 152/80
[2019-05-19] MEDS ORDERED: HYDROCODON-ACE1 EAC7 PO (08:47)
--- NOTE | 2019-05-19 10:32 | NUR ---
PATIENT DISCHARGING HOME TODAY WITH FAMILY AND SHE WILL HAVE CAREGIVERS PROVIDED BY HER FAMILY. [facility] WILL PROVIDE THERAPY AT HOME. [facility] WILL PROVIDE IV MEDICATIONS FOR HOME. DR. OBRIEN 06/01/19 @ 9;00. DR. BROWN 05/30/19 @ 3:00. PATIENT CHOICE FORM AND IMFM FORMS SIGNED, COPY GIVEN TO PATIENT AND FILED IN CHART. DISCHARGE INSTRUCTIONS WITH FIM DATA FAXED TO PCP, HOME HEALTH AND REVIEWED WITH PATIENT AND FAMILY.
--- NOTE | 2019-05-19 13:10 | NUR ---
DC HOME WITH ALL PERSONAL BELONGINGS. MEDS CALLED INTO PHARMACY. SON ANXIOUS TO BE TAUGHT HOW TO USE LUE PICC. EXPLAINED TO HIM THAT HOME HEALTH WOULD EXPLAIN AND DEMONSTRATE USE OF PICC LINE FOR ABD. THIS NURSE DID NOT KNOW WHAT KIND OF PUMP, TUBING AND FLUSH HOME HEALTH WOULD PROVIDE FOR PT TO USE. PT WAS SMILING AND WAS READY TO GO HOME.
== END 2019-05-19 13:00 | disposition home health service (06) | DRG 71 ==
LOC: D.REHAB 16:45
PROVIDERS: ADMIT Emergency Medicine; ATTEND Emergency Medicine
PROC: 05HY33Z Insertion of Infusion Device into Upper Vein, Percutaneous Approach (ICD-10-PCS; principal; 2019-05-18)
DX: G93.40 Encephalopathy, unspecified (principal); M00.9 Pyogenic arthritis, unspecified; J98.11 Atelectasis; N17.9 Acute kidney failure, unspecified; M17.10 Unilateral primary osteoarthritis, unspecified knee; I10 Essential (primary) hypertension; D64.9 Anemia, unspecified; M25.561 Pain in right knee; M25.562 Pain in left knee; M11.20 Other chondrocalcinosis, unspecified site; B99.9 Unspecified infectious disease

== ENCOUNTER → 2019-05-22 20:40 | Outpatient (CLI) | payer MEDICARE, OTHER ==
[2019-05-12 12:11] VITALS: BMI 22.6
[2019-05-22 21:33] LABS: BASOPHILS 1.6 % (0-2); EOSINOPHILS 3.3 % (0-7); HEMOGLOBIN 11.1 g/dL (12-16); LYMPHOCYTES 23.8 % (15-50); MCH 30.7 pg (26.0-34.0); MCHC 31.7 g/dL (31.0-37.0); MCV 96.7 fL (80.0-100.0); MEAN PLATELET VOLUME 9.3 fL (7.4-10.4); MONOCYTES 14.4 % (2-11); NEUTROPHILS 54.9 % (40-80); PLATELET COUNT 320 10x3/uL (130-400); RBC 3.62 10x6/uL (4.00-5.40); RDW 15.4 % (11.5-14.5); WBC 9.8 10x3/uL (4.8-10.8)
[2019-05-22 21:56] LABS: C-REACTIVE PROTEIN 0.3 mg/dL (0.0-0.9); CREATININE - SERUM 1.2 mg/dL (0.6-1.3)
[2019-05-22 22:31] LABS: ERYTHROCYTE SEDIMENTATION RATE 47 mm/hr (0-30)
== END | disposition home or self-care (01) ==
LOC: D.LABREF 20:40
PROVIDERS: ATTEND Family Medicine
DX: G93.40 Encephalopathy, unspecified (principal)

== ENCOUNTER → 2019-05-24 10:09 | Outpatient (CLI) | payer MEDICARE, OTHER ==
[2019-05-12 12:11] VITALS: BMI 22.6
[2019-05-24 10:29] LABS: HEMATOCRIT 33.7 % (36.0-48.0); HEMOGLOBIN 10.9 g/dL (12-16); LYMPHOCYTES 27.3 % (15-50); MCHC 32.3 g/dL (31.0-37.0); MCV 95.7 fL (80.0-100.0); MEAN PLATELET VOLUME 9.4 fL (7.4-10.4); NEUTROPHILS 57.1 % (40-80); RBC 3.52 10x6/uL (4.00-5.40); RDW 14.3 % (11.5-14.5); WBC 8.3 10x3/uL (4.8-10.8)
[2019-05-24 10:34] LABS: ALBUMIN 2.8 g/dL (3.4-5.0); ANION GAP 9.9 mmol/L (8-16); BILIRUBIN - TOTAL 0.39 mg/dL (0.2-1.3); CARBON DIOXIDE 31.5 mmol/L (21.0-32.0); PROTEIN - SERUM 7.4 g/dL (6.4-8.2)
[2019-05-24 10:35] LABS: POTASSIUM - SERUM 4.4 mmol/L (3.5-5.1)
[2019-05-24 10:44] LABS: PLATELET COUNT 243 10x3/uL (130-400)
== END | disposition home or self-care (01) ==
LOC: D.LABREF 10:09
PROVIDERS: ATTEND Family Medicine
DX: G93.40 Encephalopathy, unspecified (principal)

== ENCOUNTER → 2019-05-29 22:45 | Outpatient (CLI) | payer MEDICARE, OTHER ==
[2019-05-12 12:11] VITALS: BMI 22.6
[2019-05-29 22:54] LABS: HEMATOCRIT 35.4 % (36.0-48.0); HEMOGLOBIN 11.3 g/dL (12-16); MCH 30.8 pg (26.0-34.0); MCHC 31.9 g/dL (31.0-37.0); MCV 96.5 fL (80.0-100.0); MEAN PLATELET VOLUME 9.8 fL (7.4-10.4); PLATELET COUNT 265 10x3/uL (130-400); RBC 3.67 10x6/uL (4.00-5.40); RDW 15.1 % (11.5-14.5); WBC 7.3 10x3/uL (4.8-10.8)
[2019-05-29 22:57] LABS: CREATININE - SERUM 1.1 mg/dL (0.6-1.3)
[2019-05-29 23:54] LABS: ERYTHROCYTE SEDIMENTATION RATE 36 mm/hr (0-30)
[2019-05-30 00:10] LABS: BASOPHILS 2 % (0-2); EOSINOPHILS 3 % (0-7); LYMPHOCYTES 32 % (15-50); MONOCYTES 7 % (2-11); NEUTROPHILS 52 % (40-80); PLATELET ESTIMATE NORMAL
== END | disposition home or self-care (01) ==
LOC: D.LABREF 22:45
PROVIDERS: ATTEND Family Medicine
DX: M00.869 Arthritis due to other bacteria, unspecified knee (principal); T84.53XA Infection and inflammatory reaction due to internal right knee prosthesis, initial encounter

== ENCOUNTER → 2019-06-27 13:40 | Outpatient (CLI) | payer MEDICARE, OTHER ==
[2019-05-12 12:11] VITALS: BMI 22.6
== END | disposition home or self-care (01) ==
LOC: D.MRI 13:40
PROVIDERS: ATTEND Orthopaedic Surgery
DX: S83.231A Complex tear of medial meniscus, current injury, right knee, initial encounter (principal)